=== PATIENT | female | born 1965 | race Caucasian/White ===

== ENCOUNTER 2020-02-26 13:41 | Outpatient (CLI) | payer MEDICARE, SELFPAY ==
--- NOTE | 2020-02-26 13:58 | MM_ITS ---
WS: [id number] DIAGNOSTIC LEFT DIGITAL MAMMOGRAM WITH CAD LEFT breast ultrasound, limited HISTORY: 6 MO F/U ASYMMETRY COMPARISON: 08/31/2019, 08/14/2019 and 07/26/2016 Technique: CC, MLO and ML views. Spot compression LEFT CC and MLO. Breast composition: There are scattered areas of fibroglandular density. Asymmetry upper-outer quadr ant of the LEFT breast at a middle depth persists. No progression since the prior study. There is gary e very minimal architectural distortion and increased density. LEFT breast ultrasound, limited. Ultrasound at 2:00 location demonstrates dense fibroglandular band but no shadowing or mass. Similar to the prior study. MM/[id number] IMPRESSION: BI-RADS: 3-Probably Benign FOLLOW UP: 6 Month Follow-up Patient to return in August for annual mammogram. Diagnostic evaluation of t he LEFT breast asymmetry should be performed at that time.
== END 2020-02-26 13:42 | disposition home or self-care (01) ==
LOC: RADSHAW 13:48
PROVIDERS: PCP Internal Medicine; Visit Provider Internal Medicine
DX: R92.8 Other abnormal and inconclusive findings on diagnostic imaging of breast (principal); N64.89 Other specified disorders of breast
CPT/HCPCS: 76642; 77065

== ENCOUNTER 2020-09-14 10:18 | Outpatient (CLI) | payer MEDICARE, SELFPAY ==
--- NOTE | 2020-09-14 10:25 | MM_ITS ---
WS: [id number] DIAGNOSTIC BILATERAL DIGITAL MAMMOGRAM WITH CAD HISTORY: ABNORMAL MAMMOGRAM LEFT BREAST COMPARISON: 02/26/2020, 08/31/2020, 08/14/2019, 07/26/2016 TECHNIQUE: Bilateral craniocaudad, mediolateral oblique, and mediolateral views are submitted. Spot c ompression LEFT MLO. Computer aided detection utilized. Breast composition: There are scattered areas of fibroglandular density. No significant change in asy mmetry in the upper outer quadrant of the LEFT breast. There may be slight improvement in the overall asymmetry. No additional imaging performed today. MM/[id number] IMPRESSION: BI-RADS: 2-Benign FOLLOW UP: 1 Year Follow-up Return to annual screening mammography.
== END 2020-09-14 10:19 | disposition home or self-care (01) ==
LOC: RADSHAW 10:22
PROVIDERS: PCP Internal Medicine; Visit Provider Internal Medicine
DX: R92.8 Other abnormal and inconclusive findings on diagnostic imaging of breast (principal)
CPT/HCPCS: 77066

== ENCOUNTER 2021-10-04 11:04 | Outpatient (CLI) | payer MEDICARE, SELFPAY ==
--- NOTE | 2021-10-04 11:15 | MM_ITS ---
WS: [id number] BILATERAL SCREENING DIGITAL MAMMOGRAM WITH CAD HISTORY: SCREENING COMPARISON: 09/14/2020, 02/26/2020, 08/14/2019 Bilateral CC and MLO views submitted. Computer aided detection analyzed. Breast composition: There are scattered areas of fibroglandular density. No suspicious masses, microc alcifications or architectural distortion. MM/[id number] IMPRESSION: BI-RADS: 2-Benign FOLLOW UP: 1 Year Follow-up
== END 2021-10-04 11:05 | disposition home or self-care (01) ==
LOC: RADSHAW 11:12
PROVIDERS: PCP Internal Medicine; Visit Provider Internal Medicine
DX: Z12.31 Encounter for screening mammogram for malignant neoplasm of breast (principal)
CPT/HCPCS: 77067

== ENCOUNTER → 2022-04-26 09:23 | Outpatient (BNVA) | payer MEDICARE, SELFPAY | PROVIDERS: PCP Family Medicine; Referring Provider Family Medicine; Visit Provider Internal Medicine | DX: M19.90 Unspecified osteoarthritis, unspecified site (principal); R76.8 Other specified abnormal immunological findings in serum; Z11.59 Encounter for screening for other viral diseases; Z11.1 Encounter for screening for respiratory tuberculosis | CPT/HCPCS: 36415; 72040; 72100; 72202; 73120; 80053; 85025; 86160; 86162; 86200; 86235; 86255; 86376; 86480; 86704; 86803; 87340; 99204 ==

== ENCOUNTER → 2022-05-24 10:45 | Outpatient (BNVA) | payer MEDICARE, SELFPAY | PROVIDERS: PCP Family Medicine; Visit Provider Internal Medicine | DX: R76.8 Other specified abnormal immunological findings in serum (principal); M54.2 Cervicalgia; N28.9 Disorder of kidney and ureter, unspecified | CPT/HCPCS: 99214 ==

== ENCOUNTER 2022-08-08 06:18 | Outpatient (CLI) | payer MEDICARE, SELFPAY ==
--- NOTE | 2022-08-08 06:38 | CT_ITS ---
WS: [id number] CT CERVICAL SPINE TECHNIQUE: Noncontrast CT of the cervical spine with coronal and sagittal reformatted images. CLINICAL INFORMATION: CERVICALGIA COMPARISON: None. DLP: 311.[address] scans at [facility] use at least one of these dose optimization techniques: automated e xposure control; mA and/or kV adjustment per patient size (includes targeted exams where dose is matc hed to clinical indication); or iterative reconstruction. FINDINGS: Straightening of the normal cervical lordosis. Mild spondylitic changes. Disc space narrowing worse a t C5-C6 and C6-C7. C2-C3: Normal. C3-C4: Disc osteophyte complex with endplate ridging. Small central protrusion with contact of the ce rvical cord. Mild central canal stenosis. Moderate facet arthropathy. Mild LEFT and no significant RI GHT foraminal narrowing. C4-C5: Disc osteophytic ridging. Spinal canal and foramen are patent. Mild facet arthropathy. C5-C6: Disc osteophyte complex with endplate ridging. Moderate central canal stenosis. Moderate facet arthropathy. Mild to moderate bilateral bony foraminal narrowing. C6-C7: Disc osteophyte complex with endplate ridging. Mild central canal stenosis. Mild LEFT greater than RIGHT bony foraminal narrowing. C7-T1: No significant disc bulging. Spinal canal and foramen are patent. Mild mucosal thickening sphenoid sinus. Mastoid air cells well aerated. CT/CT cervical spin wo con* [id number] IMPRESSION: 1. Straightening of the normal cervical lordosis. Mild spondylitic changes. 2. Mild central canal stenosis C3-C4 small central protrusion and slight conta ct of the cervical cord. 3. Moderate central canal stenosis C5-C6 due to disc osteophyte complex.. 4. Mild to moderate bony foraminal narrowing worse at bilateral C5-C6 and bila teral C6-C7.
== END 2022-08-08 06:19 | disposition home or self-care (01) ==
LOC: RAD 06:20
PROVIDERS: PCP Family Medicine; Visit Provider Nurse Practitioner
DX: M50.21 Other cervical disc displacement, high cervical region (principal); M25.78 Osteophyte, vertebrae; M47.892 Other spondylosis, cervical region; M48.02 Spinal stenosis, cervical region
CPT/HCPCS: 72125

== ENCOUNTER → 2022-08-23 09:20 | Outpatient (BNVA) | payer MEDICARE, SELFPAY | PROVIDERS: PCP Family Medicine; Visit Provider Internal Medicine | DX: R76.8 Other specified abnormal immunological findings in serum (principal); M54.2 Cervicalgia; N28.9 Disorder of kidney and ureter, unspecified | CPT/HCPCS: 99214 ==

== ENCOUNTER → 2022-09-13 13:34 | Outpatient (BNVA) | payer MEDICARE, SELFPAY | PROVIDERS: PCP Family Medicine; Visit Provider Podiatrist Foot & Ankle Surgery | DX: M76.71 Peroneal tendinitis, right leg (principal); E11.9 Type 2 diabetes mellitus without complications; Z79.84 Long term (current) use of oral hypoglycemic drugs | CPT/HCPCS: 99213 ==

== ENCOUNTER 2022-09-17 08:23 | Outpatient (RCR) | payer MEDICARE, SELFPAY | END 2022-10-13 23:59 | disposition home or self-care (01) | LOC: SPT 08:23 | PROVIDERS: PCP Family Medicine; Visit Provider Anesthesiology Pain Medicine | DX: M54.2 Cervicalgia (principal) | CPT/HCPCS: 97110; 97162; G0283 ==

== ENCOUNTER 2022-10-14 06:00 | Outpatient (RCR) | payer MEDICARE, SELFPAY | END 2022-10-24 23:59 | disposition home or self-care (01) | LOC: SPT 06:00 | PROVIDERS: PCP Family Medicine; Visit Provider Anesthesiology Pain Medicine | DX: M54.2 Cervicalgia (principal) | CPT/HCPCS: 97110; G0283 ==

== ENCOUNTER → 2022-11-20 14:47 | Outpatient (BNVA) | payer MEDICARE, SELFPAY | PROVIDERS: PCP Family Medicine; Visit Provider Internal Medicine | DX: R76.8 Other specified abnormal immunological findings in serum (principal); M54.2 Cervicalgia; N28.9 Disorder of kidney and ureter, unspecified; M25.561 Pain in right knee; M25.562 Pain in left knee; Z79.899 Other long term (current) drug therapy | CPT/HCPCS: 20610; 99214; J1030 ==

== ENCOUNTER → 2022-11-22 14:52 | Outpatient (BNVA) | payer MEDICARE, SELFPAY | PROVIDERS: PCP Family Medicine; Visit Provider Podiatrist Foot & Ankle Surgery | DX: I73.9 Peripheral vascular disease, unspecified (principal); L60.3 Nail dystrophy; R76.8 Other specified abnormal immunological findings in serum; N28.9 Disorder of kidney and ureter, unspecified; Z79.84 Long term (current) use of oral hypoglycemic drugs | CPT/HCPCS: 11721 ==

== ENCOUNTER → 2023-02-12 13:46 | Outpatient (BNVA) | payer MEDICARE, SELFPAY | PROVIDERS: PCP Family Medicine; Visit Provider Internal Medicine | DX: R76.8 Other specified abnormal immunological findings in serum (principal); N28.9 Disorder of kidney and ureter, unspecified; M54.2 Cervicalgia; M25.569 Pain in unspecified knee | CPT/HCPCS: 99213 ==

== ENCOUNTER → 2023-02-14 12:49 | Outpatient (BNVA) | payer MEDICARE, SELFPAY | PROVIDERS: PCP Family Medicine; Visit Provider Podiatrist Foot & Ankle Surgery | DX: I73.9 Peripheral vascular disease, unspecified (principal); L60.3 Nail dystrophy; L85.1 Acquired keratosis [keratoderma] palmaris et plantaris; N28.9 Disorder of kidney and ureter, unspecified; R76.8 Other specified abnormal immunological findings in serum | CPT/HCPCS: 11721; 17110 ==

== ENCOUNTER → 2023-04-18 12:49 | Outpatient (BNVA) | payer MEDICARE, SELFPAY | PROVIDERS: PCP Family Medicine; Visit Provider Podiatrist Foot & Ankle Surgery | DX: I73.9 Peripheral vascular disease, unspecified (principal); L60.8 Other nail disorders; L85.1 Acquired keratosis [keratoderma] palmaris et plantaris; L60.3 Nail dystrophy; N28.9 Disorder of kidney and ureter, unspecified; R76.8 Other specified abnormal immunological findings in serum | CPT/HCPCS: 11721; 17110 ==

== ENCOUNTER → 2023-04-22 13:43 | Outpatient (BNVA) | payer MEDICARE, SELFPAY | PROVIDERS: PCP Family Medicine; Referring Provider Internal Medicine; Visit Provider Student in an Organized Health Care Education/Training Program | DX: M25.561 Pain in right knee (principal); M25.562 Pain in left knee; M17.11 Unilateral primary osteoarthritis, right knee | CPT/HCPCS: 73560; 73565; 97760; 99204; L1851 ==

== ENCOUNTER 2023-04-22 16:12 | Outpatient (CLI) | payer MEDICARE, SELFPAY | END 2023-04-22 16:13 | disposition home or self-care (01) | LOC: SPT 16:12 | PROVIDERS: PCP Family Medicine; Visit Provider Student in an Organized Health Care Education/Training Program | DX: Z46.89 Encounter for fitting and adjustment of other specified devices (principal); M17.11 Unilateral primary osteoarthritis, right knee; M25.561 Pain in right knee; M25.562 Pain in left knee | CPT/HCPCS: 97760; 99204; L1851 ==

== ENCOUNTER → 2023-04-24 08:52 | Outpatient (BNVA) | payer MEDICARE, SELFPAY | PROVIDERS: PCP Family Medicine; Visit Provider Internal Medicine | DX: R76.8 Other specified abnormal immunological findings in serum (principal); N28.9 Disorder of kidney and ureter, unspecified; M54.2 Cervicalgia; M25.569 Pain in unspecified knee | CPT/HCPCS: 99214 ==

== ENCOUNTER 2023-05-06 07:44 | Outpatient (CLI) | payer MEDICARE, SELFPAY ==
--- NOTE | 2023-05-06 08:00 | CT_ITS ---
WS: [id number] CT RIGHT KNEE, NONCONTRAST TECHNIQUE: Noncontrast CT of the RIGHT knee to include the RIGHT hip and ankle. [facility] CLINICAL INFORMATION: PRIOR TO RIGHT TOTAL KNEE ARTHROPLASTY COMPARISON: None. DLP: 1010.[address] scans at [facility] use at least one of these dose optimization techniques: automated e xposure control; mA and/or kV adjustment per patient size (includes targeted exams where dose is matc hed to clinical indication); or iterative reconstruction. FINDINGS: Chronic fracture mid and distal LEFT femoral shaft with prominent callus formation. Similar-appearing chronic healed fracture LEFT femoral shaft. Advanced degenerative arthritis RIGHT knee worse involving the lateral joint compartment with bone-on -bone articulation. Hypertrophic patella. Small suprapatellar effusion. Moderate degenerative narrowi ng both hips RIGHT greater than LEFT. CT/CT knee RT [facility] IMPRESSION: Images obtained for preoperative purposes.
== END 2023-05-06 07:45 | disposition home or self-care (01) ==
PROVIDERS: PCP Family Medicine; Visit Provider Student in an Organized Health Care Education/Training Program
DX: Z01.818 Encounter for other preprocedural examination (principal); M17.11 Unilateral primary osteoarthritis, right knee
CPT/HCPCS: 73700

== ENCOUNTER 2023-05-22 11:08 | Outpatient (CLI) | payer MEDICARE, SELFPAY ==
--- NOTE | 2023-05-22 11:20 | MM_ITS ---
WS: [id number] BILATERAL SCREENING DIGITAL TOMOSYNTHESIS MAMMOGRAM WITH CAD HISTORY: SCREENING COMPARISON: 10/04/2021, 09/14/2020 and 02/26/2020 Bilateral CC and MLO views with tomosynthesis and synthetic mammography submitted. Computer aided det ection analyzed. Breast composition: There are scattered areas of fibroglandular density. No suspicious masses, microc alcifications or architectural distortion. Stable asymmetry in the upper outer quadrant of the left b reast. Benign calcification left breast. IMPRESSION: MM/[id number] BI-RADS: 2-Benign FOLLOW UP: 1 Year Follow-up
== END 2023-05-22 11:09 | disposition home or self-care (01) ==
LOC: RAD 11:14 → MOBLMAM 11:19
PROVIDERS: PCP Family Medicine; Visit Provider Family Medicine
DX: Z12.31 Encounter for screening mammogram for malignant neoplasm of breast (principal)
CPT/HCPCS: 77063; 77067

== ENCOUNTER → 2023-05-23 09:35 | Outpatient (BNVA) | payer MEDICARE, SELFPAY | PROVIDERS: PCP Family Medicine; Visit Provider Student in an Organized Health Care Education/Training Program | DX: Z01.818 Encounter for other preprocedural examination (principal); M17.11 Unilateral primary osteoarthritis, right knee; E11.9 Type 2 diabetes mellitus without complications; Z79.84 Long term (current) use of oral hypoglycemic drugs | CPT/HCPCS: 99214 ==

== ENCOUNTER 2023-05-30 10:22 | Outpatient (CLI) | payer MEDICARE, SELFPAY ==
[2023-05-30 11:01] LABS: Basophils # 0.1 10^3/uL (0.0-0.1); Basophils % 1.1 %; Eosinophils # 0.5 10^3/uL (0.0-0.8); Hematocrit 41.2 % (37.0-47.0); Hemoglobin 13.2 g/dL (11.5-15.3); Lymphocytes # 0.9 10^3/uL (0.8-4.8); Lymphocytes % 16.4 %; Mean Corpuscular Hemoglobin 29.3 pg (28.0-34.0); Mean Corpuscular Volume 91.6 fl (81-99); Mean Platelet Volume 9.2 fL (7.4-10.4); Monocytes # 0.5 10^3/uL (0.2-0.9); Neutrophils # 3.35 10^3/uL (1.8-7.7); Neutrophils % 63.1 %; Nucleated Red Blood Cells % 0 %; Platelet Count 262 10^3/cmm (130-400); Red Cell Distribution Width 12.5 % (12.1-15.1); White Blood Count 5.3 10^3/uL (4.0-10.0)
[2023-05-30 11:20] LABS: Estmated Average Glucose 117; Hemoglobin A1C 5.7 % (4.0-6.0)
[2023-05-30 11:20] LABS: Bilirubin Urine Neg (Negative); Blood Urine Neg (Negative); Glucose Urine UA Norm (Normal); Ketones Urine Negative (Negative); Nitrate Urine Negative (Negative); Protein Urine Neg (Negative); Specific Gravity, Urine 1.015 (1.005-1.030); Urine Appearance SL Hazy (CLEAR); Urine Color Yellow (Yellow); pH Urine 5 (5-7)
[2023-05-30 11:21] LABS: Leukocyte Esterase Urine 2+ (Negative); RBC Urine 0-4 /hpf (0-2); Urobilinogen Urine Norm (Negative)
[2023-05-30 11:22] LABS: Add Urine Culture? No; Amorphous Sediment Urine 2+ /hpf; Bacteria Urine TRACE /hpf; Hyaline Casts Urine 0-4 /lpf; Mucus Urine 1+ /hpf; Squamous Epithelial Cell Urine 0-4 /hpf (0-5)
[2023-05-30 11:27] LABS: Alanine Aminotransferase 33 U/L (0-33); Albumin Level 4.4 g/dL (3.5-5.2); Alkaline Phosphatase 80 U/L (35-105); Aspartate Amino Transferase 35 U/L (0-32); Blood Urea Nitrogen 23 mg/dL (8-23); Calcium 9.3 mg/dL (8.5-10.5); Carbon Dioxide 26 mmol/L (22-29); Chloride 108 mmol/L (98-107); Globulin 2.7 g/dL (1.3-4.6); Glucose 87 mg/dL (65-115); Osmolality Calculated 301 mOsm/kg (285-295); Sodium 144 mmol/L (136-145); Total Bilirubin 0.5 mg/dL (0.15-1.2); Total Protein 7.1 g/dL (6.6-8.7)
== END 2023-05-30 10:23 | disposition home or self-care (01) ==
PROVIDERS: Student in an Organized Health Care Education/Training Program; PCP Family Medicine; Visit Provider Internal Medicine
DX: Z01.818 Encounter for other preprocedural examination (principal); E11.9 Type 2 diabetes mellitus without complications; Z79.899 Other long term (current) drug therapy
CPT/HCPCS: 36415; 80053; 81001; 83036; 85025

== ENCOUNTER 2023-05-31 14:27 | Outpatient (CLI) | payer MEDICARE, SELFPAY ==
--- NOTE | 2023-05-31 15:00 | CT_ITS ---
WS: [id number] CT RIGHT KNEE, NONCONTRAST TECHNIQUE: Noncontrast CT of the RIGHT knee to include the RIGHT hip and ankle. CLINICAL INFORMATION: RIGHT TOTAL KNEE ARTHROPLASTY CINDY COMPARISON: None. DLP: 895.[address] scans at [facility] use at least one of these dose optimization techniques: automated e xposure control; mA and/or kV adjustment per patient size (includes targeted exams where dose is matc hed to clinical indication); or iterative reconstruction. FINDINGS: Chronic healed fracture deformities involving both mid femoral shafts seen on the semi driver imaging with callus formation. Moderate degenerative arthritis bilateral hips. Normal visualized pubic rami. Anu l sigmoid colon partially visualized. Advanced tricompartmental arthritis right knee. Hypertrophic patella. Hypertrophic change along the j oint line. Small suprapatellar effusion. IMPRESSION: Images obtained for preoperative purposes.
== END 2023-05-31 14:28 | disposition home or self-care (01) ==
PROVIDERS: PCP Family Medicine; Visit Provider Student in an Organized Health Care Education/Training Program
DX: M17.11 Unilateral primary osteoarthritis, right knee (principal)
CPT/HCPCS: 73700

== ENCOUNTER → 2023-06-04 10:11 | Outpatient (BNVA) | payer MEDICARE, SELFPAY | PROVIDERS: PCP Family Medicine; Visit Provider Clinical Nurse Specialist Adult Health | DX: Z01.818 Encounter for other preprocedural examination (principal); N28.9 Disorder of kidney and ureter, unspecified | CPT/HCPCS: 81003; 82043 ==

== ENCOUNTER → 2023-06-06 07:51 | Outpatient (BNVA) | payer MEDICARE, SELFPAY | PROVIDERS: PCP Family Medicine; Visit Provider Clinical Nurse Specialist Adult Health | DX: N28.9 Disorder of kidney and ureter, unspecified (principal) | CPT/HCPCS: 87086 ==

== ENCOUNTER 2023-06-10 14:40 | Observation (INO) | payer MEDICARE, SELFPAY ==
[2023-06-07 12:10] VITALS: BMI 42.0
[2023-06-10] VITALS (12 sets, daily range): BP systolic 91–167; BP diastolic 47–85; PULSE 63–87; RESP 14–18; TEMP 36.3–36.4; O2SAT 94–99; BMI 42.0
[2023-06-10] MEDS: acetaminophen 1,000 MG/100 ML PIGGYBACK 400 MG IV ×2 (10:12→18:13)
[2023-06-10] MEDS: ketorolac 30 mg/mL INJ IVP (10:13)
[2023-06-10] MEDS: lactated ringers 500 ML 250 ML IV (10:14)
[2023-06-10 10:18] LABS: Basophils # 0.1 10^3/uL (0.0-0.1); Basophils % 0.9 %; Eosinophils # 0.5 10^3/uL (0.0-0.8); Hematocrit 39.7 % (36-47); Lymphocytes # 1.4 10^3/uL (0.8-4.8); Lymphocytes % 26.6 %; Mean Corpuscular HGB Conc 32.7 g/dL (30-55); Mean Corpuscular Hemoglobin 29.7 pg (27-33); Mean Corpuscular Volume 90.6 fl (85-98); Mean Platelet Volume 9.6 fL (7.4-10.4); Monocytes # 0.4 10^3/uL (0.2-0.9); Monocytes % 7.9 %; Neutrophils # 2.89 10^3/uL (1.8-7.7); Neutrophils % 54.4 %; Nucleated Red Blood Cells % 0 %; Platelet Count 244 10^3/cmm (157-399); Red Blood Count 4.38 10^6/uL (3.85-5.65); Red Cell Distribution Width 12.3 % (12.1-15.1); White Blood Count 5.31 10^3/uL (3.29-11.43)
[2023-06-10 10:32] LABS: Blood Urea Nitrogen 27 mg/dL (8-23); Carbon Dioxide 26 mmol/L (22-29); Chloride 108 mmol/L (98-107); Glomerular Filtration Rate 32.9 mL/min (90-130); Glucose 92 mg/dL (65-115); Osmolality Calculated 301 mOsm/kg (285-295); Sodium 143 mmol/L (136-145)
[2023-06-10 10:33] LABS: Creatinine Clr Calc Pharmacy 42.3763
[2023-06-10 10:34] LABS: Anion Gap 14.2 (5-19); Potassium 5.2 mmol/L (3.5-5.1)
--- NOTE | 2023-06-10 10:42 | P.ANESASSM_ITS ---
Pre-Anesthetic Assessment Height/Weight: Height 1.57 m Weight 104.326 kg Temp Pulse Resp BP Pulse Ox O2 Del Method 97.3 F L 82 18 167/85 97 Room Air 06/10/23 09:45 06/10/23 09:45 06/10/23 09:45 06/10/23 09:45 06/10/23 09:45 06/10/23 09:50 Preop Diagnosis: Right knee degenerative joint disease Operation Date: 06/10/23 11:10 Proposed Procedures p RIGHT TOTAL KNEE ARTHROPLASTY w/ Sagar [id number],M17.11(Right) - Andrea Vizcarra DO Familial anesthetic complications: None Was Beta Rosie taken within 24 hours: N/A Was Clonidine taken within 24 hours: N/A Last intake: Intake Last Liquid Date 06/09/23 Last Liquid Time 23:00 Last Solid Date 06/09/23 Last Solid Time 20:00 Social No alcohol and No tobacco Exam alert, oriented x 3, clear to auscultation bilaterally and regular rate & rhythm Airway Mallampati: Class II Dentition: full Pulmonary Asthma CV/HEM Hypertension Chronic Renal Insufficiency Metabolic Diabetes Mellitus, Hyperlipidemia and Morbid Obesity [facility] [place] Rheumatoid Arthritis Anesthetic Plan ASA status: 3 Anesthesia: Regional (specify below) (spinal + adductor) Risk of > 500 ml blood loss (7ml/kg in children): No Medications/Allergies Home Medications Medication Instructions Recorded Confirmed Last Taken Type albuterol sulfate 90 mcg/actuation 2 puff inhalation Q6H PRN Allergy 08/29/21 06/07/23 06/09/23 History aerosol inhaler (ProAir HFA) Symptoms atorvastatin 20 mg tablet 20 mg PO DAILY 08/29/21 06/07/23 06/09/23 History budesonide-formoterol HFA 160 2 puff inhalation BID 08/29/21 06/07/23 06/09/23 History mcg-4.5 mcg/actuation aerosol inhaler (Symbicort) glucosamine sulf dipot 1 cap PO DAILY 08/29/21 06/07/23 06/09/23 History chlr,msm,chond 550 mg-C 30 mg-tye 1 mg capsule (Glucosamine Chondroitin) montelukast 10 mg tablet 10 mg PO DAILY 08/29/21 06/07/23 06/09/23 History pantoprazole 40 mg tablet,delayed 40 mg PO DAILY 08/29/21 06/07/23 06/09/23 History release diclofenac sodium 1 % topical gel 4 g topical QID #100 grams 08/23/22 06/07/23 06/09/23 Rx (Voltaren Arthritis Pain) hydroxychloroquine 200 mg tablet 200 mg PO BID 30 days #60 tabs 03/18/23 06/07/23 06/09/23 Rx KNEE BRACE #1 ea 04/22/23 06/04/23 Unknown Rx lisinopril 10 mg tablet 5 mg PO DAILY 06/04/23 06/07/23 06/09/23 History metformin 500 mg tablet 500 mg PO DAILY 06/04/23 06/07/23 06/09/23 History prednisone 5 mg tablet 5 mg PO DAILY #30 tabs 06/06/23 06/10/23 06/09/23 Rx ondansetron 4 mg disintegrating 4 mg PO Q8H PRN nausea and 06/10/23 Unknown Rx tablet vomiting 3 days #9 tabs Allergies Allergy/AdvReac Type Severity Reaction Status Date / Time No Known Allergies Allergy Verified 06/04/23 09:30 PFSH Anesthesia Medical History Asthma Bilateral knee pain Chronic kidney disease Chronic migraine Diabetes Hypertension Kidney disease hx of kidney scarring Surgical History History of knee surgery 2012 Family History Other Arthritis Chronic kidney disease (CKD) Diabetes Denies family history of CAD (coronary artery disease) Clotting disorder Dementia Anesthesia complication Bleeding disorder Lung disease Cancer Stroke Social History Smoking and tobacco status: never smoked Alcohol intake: never Substance/Drug Use: never Household members: spouse Marital status: Data Anesthesia 06/10/23 10:00 06/10/23 10:00 Short CBC 06/10/23 Range/Units 10:00 WBC 5.31 (3.29-11.43) 10^3/uL Hgb 13.00 (11.27-16.99) g/dL Hct 39.7 (36-47) % MCV 90.6 (85-98) fl Plt Count 244 (157-399) 10^3/cmm Neut % (Auto) 54.4 % Neut # (Auto) 2.89 (1.8-7.7) 10^3/uL BMP 06/10/23 10:00 Sodium 143 Potassium 5.2 H Chloride 108 H Carbon Dioxide 26 BUN 27 H Creatinine 1.6 H Glucose 92 Calcium 9.0 Cardiac Studies: No Data to Display
--- NOTE | 2023-06-10 10:44 | ANES.PROC ---
Anesthesia Procedures Procedure/Date: 06/10/23 Nerve Block ^: Nerve Block 1: Main Anesthesia: spinal anesthesia block Time Out Performed: Yes Consent: requested by attending/covering physician, from patient, from other, risks and benefits reviewed and patient agrees to proceed Nerve block location: adductor canal (R) Anesthesia monitors applied: pulse oximetry, EKG, BP cuff and oxygen Nerve block position: supine Anesthetic Used: ropivicaine 0.5% (30 ml) and with decadron (4 mg) Ultrasound used to: recognize landmarks and visualize and ID femerol nerve Nerve Stimulator Used?: No Interscalene/Femoral BLK: 4 stimuplex 21 g needle used for position and inplane approach, visualize local anesthetic spread and no vascular puncture identified Injection: neg aspiration of heme and paresthesia +/- Patient Tolerated Procedure: well Complications: none
--- NOTE | 2023-06-10 11:05 | P.HPUD_ITS ---
Surgery/Procedure H&P Update DATE OF PROCEDURE: June 10, 2023 DATE H&P PERFORMED: 05/23/23 CHANGES TO PREVIOUS DOCUMENTATION: None. No change in HPI from previous office visit on 05/23/2023. Patient is cleared preoperative clinic and cleared for surgery. She understands the risk benefits complication alternatives with surgery and through shared decision- making elects to proceed with surgical intervention of a right total knee arthroplasty Sagar robotic assisted. Patient understands agrees with current plan. Questions answered. PREOP DIAGNOSIS: Right knee degenerative joint disease PRIMARY INDICATION FOR PROCEDURE: Right knee degenerative joint disease PLANNED PROCEDURE: Operation Date: 06/10/23 11:10 Proposed Procedures p RIGHT TOTAL KNEE ARTHROPLASTY w/ Sagar [id number],M17.11(Right) - Andrea Vizcarra DO
[2023-06-10] MEDS: ceFAZolin 2,000 MG in sodium chloride 0.9% (plus) 50 ML 100 MG IV ×2 (11:40→20:23)
--- NOTE | 2023-06-10 11:42 | PM.MISC ---
Miscellaneous Note Purpose of Documentation: SOB Note: Called to OR before spinal placed d/t patient O2 sat of 88% of room air and mild SOB. Patient stated she hadn't taken her inhaler this morning and she was given this inhlaer before my arrival to OR. Upon entrance to OR O2 via simple face mask was applied, O2 sat increased to 99% and SOB improved. I was told by OR staff she was short of breath right before coming to OR and upon moving onto OR bed and that she coughed up mucus. Patient states she had no SOB, cough, runny nose, or sore throat previously and that she felt her nose get a bit runny and itchy with a bit of associated cough only just as she was about to exit pre-op. Her SOB improved after several minutes of watchful waiting, her lungs were CT Bilaterally, and patient denies any other s/s of respiratory infection including Nausea or fever. She is afebrile, she has no white count, and her O2 sat was 97% on RA in pre-op. After discussion with surgeon, we decided to proceed with patient in agreement given the spontaneous and transient nature of the complaint.
[2023-06-10] MEDS: ROPivacaine 0.2% Premix 100 mL 200 MG INTRA-ARTI (12:22)
[2023-06-10] MEDS: tranexamic acid 1,000 mg/10mL SDV 1000 MG XX (12:22)
[2023-06-10] MEDS: EPINEPHrine 1 mg/mL INJ XX (12:22)
[2023-06-10] MEDS: ketorolac 30 mg/mL INJ XX (12:22)
--- NOTE | 2023-06-10 12:37 | SUR.OPER ---
Family Notified Of Patient's Status Via Phone.
--- NOTE | 2023-06-10 13:28 | SUR.OPER ---
Family Notified Of Patient's Status Via Phone.
[2023-06-10] MEDS: vancomycin 1,000 MG SDV 1000 MG XX (14:00)
--- NOTE | 2023-06-10 14:21 | P.OP_ITS ---
Operative Report Date of procedure: June 10, 2023 Pre-op diagnosis: Preop Diagnosis Right knee degenerative joint disease Procedure: Post-op diagnosis: Same Procedure done: Right total knee arthroplasty, cemented?robotic assisted Sagar Implants: [place] triathlon size 3 femur CR cemented right Emmanuel triathlon size? 4 tibia universal baseplate cemented Emmanuel triathlon symmetric patella size 33mm [place] triathlon polyethylene 12mm Surgeon: Andrea Vizcarra DO Campus Ambassador : Taqueria Vizcarra PA-C PA was necessary for assistance with this case to assist with appropriate leg positioning, implantation, protection of neurovascular structures and assistance with wound closure. Estimated blood loss: 75mL Tourniquet 101minutes IV fluids: 1500 mL Urine output: 200mL Complications: None Condition: stable Disposition: floor Brief History: Patient is a 6-0year-old female with with chronic right knee degenerative joint disease.? Patient has been worked up in the outpatient setting in the orthopedic office at this point time through shared decision making given his [id number]-nkmg arthritis as well as failed conservative treatment, and pt would like to proceed with a right total knee arthroplasty.? Through shared decision making elected to proceed with surgical intervention for right total knee arthroplasty.? We talked about continued conservative treatment and surgical intervention as far as the risk benefits complications alternatives surgical and nonsurgical treatment options.? At this point time understanding patient risks with surgery he agrees to proceed with surgical intervention.? Once again? risk with surgery include but are not limited to make it better make it worse blood clot, heart attack, stroke, on the table, infection, injury to nerves or vessels, persistent pain, arthrofibrosis, implant failure.? Understanding these risks patient agrees to proceed with surgical intervention consent was obtained in the office.? All questions answered. Procedure: Patient was seen and evaluated in the preoperative holding area.? Consent was reviewed and signed with patient with plan for right total knee arthroplasty.? All questions answered.? Correct extremity marked.? Patient seen and evaluated by the anesthesia department and once cleared for surgery was taken back to the operative suite.? Patient was placed into a supine position on the OR table.? All bony prominences were well-padded.? Patient was appropriately secured to the bed.? Patient underwent anesthesia per the anesthesia department.? Patient received spinal anesthesia and? Mendiola catheter was placed.? A nonsterile tourniquet was applied to the right thigh.? At this point in time a final timeout performed.? Patient received appropriate preoperative antibiotics and TXA. Next the right lower extremity was then prepped and draped in standard orthopedic fashion. Esmarch tourniquet was used exsanguinate the right lower extremity.? Tourniquet was insufflated to 300 mmHg. Examination under anesthesia of the knee demonstrates a valgus deformity with some laxity MCL but a noticeable firm endpoint. TS implants were readily available if the MCL was found to be incompetent during balancing. A standard anterior incision was made over midline of the knee.? Sharp scalpel excision through skin and subcutaneous tissue full-thickness skin flaps were made.? Fascia was elevated off of the extensor retinaculum was stable with medial parapatellar arthrotomy was then made.? The performed standard sequential releases..? Immediately on entry into the joint patient was found to have severe eburnated bone and tricompartmental arthritic changes noted.? With significant osteophyte formation.? Next the the patella was then stuffed and the knee was then flexed.?? Doe was placed superiorly around the anterior aspect of the femur this was freed of synovium and I subsequently then placed by 2 femur pins to establish my femur arrays for the Sagar robot.? These were then placed bicortically and? femur array was then appropriately secured with appropriate visualization.? Next attention was turned towards the tibial rays.? These were then drilled sequentially bicortically in parallel fashion and intraincisional.? I then placed my guide as well as my tibial array on in place.? This was appropriately secured and had excellent visualization with the Sagar robot.? Next the tibial checkpoint as well as femur checkpoint were then placed.? At this point time I then subsequently established my head center as well as my medial lateral malleoli as well as my checkpoints.? Next utilizing standard Sagar technology I then mapped out the appropriate points and confirmation points around the femur as well as the tibia in standard fashion.? Once this was then done I then removed all osteophytes in preparation for dynamic testing.? All osteophytes were removed as well as I removed the ACL and the PCL was excised due to its significant tearing and degeneration noted.? At this point time the knee was brought into full extension and we performed our standard evaluation of our gap balancing stressing his ligaments and extension as well as flexion appropriate adjustments were made to have appropriate gap balancing in both flexion and extension.? Patient was found to have a competent MCL amendable for gap balancing with [employer] robot[employer]. We will plan for CR implants. This plan for final counts.? We get a preoperative plan evaluating our implants which was a size 3 femur and a size 4 tibia.? Next we brought in the Sagar robot and sequentially made our femur cuts.? All excess bony cuts were then removed.? Finally we made our tibial cut.? Once this was done a standard PCL retractor was then placed into this position I excised the medial and lateral meniscus.? The tibial cut was then subsequently removed all excess bony debris was removed.? I then utilized a lamina airfield services officer and remove the posterior osteophytes.? At this point time sized the tibia and confirmed this was a size 4.? I utilized our blunt probe to establish rotation of tibial implant.? Once this was done I then placed my tibia size 4 trial in ap propriate position and then subsequently placed tibial pins to hold this into place placed a size 12 mm poly as well as a size 3 femur which was appropriately impacted in place knee was then subsequently brought into extension. Trials were then assessed, this was stable with varus valgus stress in extension as well as flexion.? I had excellent balance gaps in flexion and extension with varus and v algus stresses.? At this point I was satisfied with these implants these were then verified and opened on the back table size 4 tibia, size3 femur,? size 12 mm polythickness.? We did confirm appropriate gap balancing and stresses as well as alignment utilizing? Sagar and were satisfied with this plan.? ?At this point time with my trials in place I then towel clip the patella everted this made appropriate measurements subsequently utilizing freehand technique performed by patellar resurfacing this was confirmed to be appropriate resection and subsequently sized to be a 33 mm symmetric.? My drill peg guides were then clamped and appropriate position and appropriate position in the patella for appropriate tracking and parallel with the joint.? Pegs were drilled trial implant was placed and the knee was then subsequently ranged and found to have excellent patellar tracking.? Femur pegs were then drilled.? Satisfied with our tibial placement rotation I then utilized the keel punch and prepped the tibia.? At this point time all of our trial implants were removed.? All checkpoints as well as guidepins and arrays were removed and appropriate counts made.? The wound bed? was thoroughly irrigated and dried and prepped for cementation.? Cement was mixed on the back table.? Once cement was ready this was then covered onto the tibia and the tibial baseplate was then impacted and all excess cement was removed.? Next the polyethylene was then impacted into place on the tibial baseplate.? Next cement was placed onto the femur as well as under the femur implants and impacted in to place and all excess cement was extruded and removed.? Knee was taken into full extension? to clear all excess cement was removed.? Warm saline was placed over the joint.? I then towel clip patella and dried for cementation. cemented the patella into place.? This was all clamped and the cement was allowed to cure.? Thorough irrigation performed with pulse lavage.? I then placed my periarticular injection while the cement was curing.? Once cured the knee was taken through range of motion and had excellent stability and gaps were balanced in flexion and extension.? Tourniquet was then deflated. hemostasis satisfactory with electrocautery.? Next I then subsequently closed the capsule with Ethibond suture as well as a running strata fix suture.? Knee was then taken through range of motion 30 times.? Next the skin was then closed in layered fashion of running stratifix sutures of deep and subcutenous tissue and skin.? ?closed in flexion and david for skin with sherron dressing applied, with ABDs soft roll and Zelalem wrap.? Patient was then awakened from anesthesia and taken to PACU in stable condition. Disposition: Patient taken to PACU in stable condition will be admitted to the floor for pain control PT/OT weight-bear as tolerated right lower extremity dressing changes as needed, DVT prophylaxis. Pain control. Patient will receive appropriate postoperative antibiotics. patient will be seen today by the internal medicine team for medical management.? Patient will follow up with the office in 2 weeks.? Patient understands agrees with current plan.? All questions answered.
--- NOTE | 2023-06-10 14:22 | XR_ITS ---
WS: [id number] Exam: XR knee RT 3V* [id number] Date/Time of Exam: 06/10/2023 2:45 PM Reason For Exam: Status post right TKA Comparison 04/22/2023. Total knee prosthesis is in place in excellent position. Postoperative changes in the adjacent soft t issues. Anterior surgical skin clips. Healed fracture of the lower femur. IMPRESSION: 1. Total knee replacement in excellent position.
--- NOTE | 2023-06-10 14:35 | PM.OP2 ---
Brief Operative Note Date of procedure: 06/10/23 Pre-op diagnosis: Right knee degenerative joint disease Post-op diagnosis: same Procedure Done: Right knee total arthroplasty with Sagar Robot Surgeon: Andrea Vizcarra Estimated blood loss (mL): 75 Complications: None Post-op Plan: Keep incisions clean dry and intact, leave Silverlon bandage dressings on in place for 7 days after that may rinse incisions with warm soapy water pat dry and redress with a dry dressing. Patient may weight-bear as tolerate to the operative extremity Physical therapy per total knee replacement protocol Utilize crutches as needed Encourage knee range of motion Ice and elevate as needed for pain and swelling Take pain medication as prescribed Take antinausea medication as needed Take the prescribed Eliquis twice daily for the next 14 days for blood clot prevention May supplement for pain with ibuprofen [id number] as needed No baths or soaks Follow-up in the orthopedic office in 2 weeks Contact the office for any questions or concerns Condition: stable Disposition: PACU Coding Level of Care Code Acute Code for Janelle Hollingsworth
--- NOTE | 2023-06-10 14:40 | PM.PACU ---
PACU note Narrative: Patient is a 58-year-old female who just underwent a right knee total arthroplasty with Sagar robot. pt transferred to PACU in stable condition. Dressing is dry. pt is awake and alert. pt can wiggle toes and plantarflex and dorsiflex foot. Able to test straight leg raise due to postop pain and weakness. Unable to assess sensation to foot due to spinal anesthetic. Distal pulses are palpable toes are warm and well-perfused. Cap refill is normal and under 2 seconds. Pain is controlled. Exam: awake Disposition: admitted
--- NOTE | 2023-06-10 15:00 | ANE.PACU2 ---
Inpatient post-anesthesia follow up: Airway intact: Yes Vital signs: Temperature 97.5 F Pulse Rate 76 Respiratory Rate 18 Blood Pressure 106/53 Pulse Oximetry 97 Oxygen Delivery Me thod Room Air Oxygen Flow Rate 6 Fraction of Inspir ed Oxygen Hydration adequate: Yes Nausea and vomiting: No Pain level: 1 Mental status: Baseline
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
[2023-06-10] MEDS: calcium carb-vit d 600mg/400unit 1 Tablet 1 EACH PO (17:50)
[2023-06-10] MEDS: iron polysaccharide complex 150 mg Capsule PO (17:50)
[2023-06-10] MEDS: mupirocin oint 22 gm 1 APPLIC NASAL (17:52)
[2023-06-10] MEDS: chlorhexidine gluconate 0.12% Btl 473 mL 30 ML MUCOUS MEM ×2 (17:53→20:23)
[2023-06-10] MEDS: lactated ringers 1,000 ML 100 ML IV (17:55)
[2023-06-10] MEDS: hydroxychloroquine 200 mg Tablet PO (18:13)
[2023-06-10] MEDS: albuterol 2.5 mg/3 mL Neb INHALATION (19:40)
[2023-06-10] MEDS: budesonide 0.5 mg/2 mL Neb INHALATION (19:40)
--- NOTE | 2023-06-10 19:43 | ECG_ITS ---
[facility] Test Date: 2023-06-10 Pat Name: Shelby Kruger Department: Room: 270 Gender: Female Hvac R Instructor: : 1965 Requested By: Magy Meredith Order Number: [id number] Farhan MD: Melvin Ritchie M.D. Measurements Intervals Zachary Rate: 76 P: 26 MT: 168 QRS: 49 QRSD: 84 T: 42 QT: 361 QTc: 407 Interpretive Statements SINUS RHYTHM INDETERMINATE AXIS POSSIBLE ANTERIOR MYOCARDIAL INFARCTION , PROBABLY OLD [30 ms Q WAVE IN V3/V4, OR R < 0.2 mV IN V4] No previous ECG available for comparison Electronically Signed On 06-10-2023 20:26:16 CDT by Melvin Ritchie M.D. [id number]
--- NOTE | 2023-06-10 20:07 | PC.NURSE ---
Dr. Odell notified that Eliquis and TXA are ordered to be given at the same time. Ordered to NOT give TXA.
--- NOTE | 2023-06-10 20:19 | PC.NURSE ---
Patient has Eliquis listed in her med rec. Patient states I don't take that at home. This has now been removed from med rec. Patient has Eliquis due at this time. Dr. Maldonado called to verify that Eliquis is still to be given to patient in this situation. Ordered to still give Eliquis.
[2023-06-10] MEDS: TRAMadol 50 mg Tablet PO (20:23)
[2023-06-10] MEDS: apixaban 5 mg Tablet 2.5 MG PO (20:23)
--- NOTE | 2023-06-10 21:51 | PC.NURSE ---
POC glucose 199 at this time.
[2023-06-10] MEDS: oxyCODONE 5 mg IR Tab/Cap PO (21:53)
[2023-06-10] MEDS: insulin lispro 100 unit/1 mL SUBCUT (21:53)
[2023-06-10] MEDS: HYDROmorphone 1 mg/mL INJ 1 mL 0.5 MG IVP (22:56)
[2023-06-11] VITALS (7 sets, daily range): BP systolic 95–108; BP diastolic 53–67; PULSE 69–87; RESP 15–18; TEMP 36.4–36.8; O2SAT 92–98
[2023-06-11] MEDS: oxyCODONE 5 mg IR Tab/Cap PO ×2 (02:11→06:03)
[2023-06-11] MEDS: acetaminophen 1,000 MG/100 ML PIGGYBACK 400 MG IV ×2 (02:11→11:04)
[2023-06-11] MEDS: ceFAZolin 2,000 MG in sodium chloride 0.9% (plus) 50 ML 100 MG IV ×2 (03:36→12:11)
[2023-06-11] MEDS: lactated ringers 1,000 ML 100 ML IV (03:36)
[2023-06-11 05:51] LABS: Glucose Point of Care 78 mg/dL (70-110)
[2023-06-11 06:09] LABS: Basophils % 0.1 %; Hematocrit 31.3 % (36-47); Lymphocytes # 0.7 10^3/uL (0.8-4.8); Mean Corpuscular HGB Conc 32.3 g/dL (30-55); Mean Corpuscular Hemoglobin 29.3 pg (27-33); Mean Corpuscular Volume 90.7 fl (85-98); Mean Platelet Volume 9.8 fL (7.4-10.4); Monocytes # 0.8 10^3/uL (0.2-0.9); Monocytes % 7.5 %; Neutrophils # 9.43 10^3/uL (1.8-7.7); Neutrophils % 85.9 %; Nucleated Red Blood Cells % 0 %; Platelet Count 184 10^3/cmm (157-399); Red Blood Count 3.45 10^6/uL (3.85-5.65); Red Cell Distribution Width 12.5 % (12.1-15.1); White Blood Count 10.97 10^3/uL (3.29-11.43)
[2023-06-11 06:29] LABS: Blood Urea Nitrogen 28 mg/dL (8-23); Calcium 8.4 mg/dL (8.5-10.5); Carbon Dioxide 24 mmol/L (22-29); Chloride 106 mmol/L (98-107); Glomerular Filtration Rate 30.7 mL/min (90-130); Glucose 130 mg/dL (65-115); Magnesium 1.8 mg/dL (1.7-2.3); Osmolality Calculated 291 mOsm/kg (285-295); Sodium 137 mmol/L (136-145)
--- NOTE | 2023-06-11 07:53 | PM.PN ---
Subjective Subjective: Patient is doing well. No acute events overnight. Patient was able to get up and ambulate yesterday and Mendiola came out this morning. Vitals/I&O/Wt Last Vital Signs Temp 97.6 F 06/11/23 07:25 Pulse 75 06/11/23 07:25 Resp 15 06/11/23 07:25 BP 95/58 06/11/23 07:25 Pulse Ox 98 06/11/23 07:25 O2 Del Method Nasal Cannula 06/11/23 07:25 O2 Flow Rate 6 06/10/23 14:33 06/10/23 06/11/23 06/11/23 22:59 06:59 14:59 Intake Total 490 / 1750 1118.333 / 2868.333 Output Total 650 / 925 500 / 1425 Balance -160 / 825 618.333 / 1443.333 Weight last 48 hrs Weight 230 lb Physical Exam Const: COMMON NORMALS: no acute distress, healthy appearing and alert Resp: COMMON NORMALS: normal respiratory effort EFFORT & INSPECTION: Yes able to speak in complete sentences and No respiratory distress Extremity: NARRATIVE EXTREMITY EXAM: Right knee?Zelalem wrap and dressing is dry and in place. Patient's toes are warm and well-perfused and cap refill is normal and under 2 seconds. Pedal pulse 2+. Normal dorsiflexion and plantarflexion. Patient able to perform straight leg raise, femoral nerve intact. Sensation to all of foot intact. Neuro: SENSORIUM/ORIENTATION: Yes alert Urinary Catheter Management: Mendiola: Cath Placed During This Visit: yes, but has since been removed by the nurse Reason for Continuing Indwelling Catheter: Decision to DC Catheter Urinary Catheter Date of Insertion: 06/10/23 Urinary Catheter Time of Insertion: 12:00 Date Urinary Catheter Removed: 06/11/23 Time Urinary Catheter Discontinued: 06:08 Data 06/11/23 05:53 06/11/23 05:53 Xray Ortho: My impression: Post op xrays in PACU showed normal intact hardware in place. A&P Assessment and plan (1) Status post total right knee replacement: Patient is POD 1 from right total knee replacement surgery. PACU imaging reviewed and she has a stable total knee arthroplasty. continue Total knee physical therapy per protocol. Keep incisions clean dry and intact, leave Piko bandage dressings on in place for 7 days after that may rinse incisions with warm soapy water pat dry and redress with a dry dressing. Patient may weight-bear as tolerate to the operative extremity Utilize crutches as needed Encourage knee range of motion Ice and elevate as needed for pain and swelling Complete post operative antibiotics Take pain medication as prescribed The prescribed Eliquis twice daily for the next 14 days for blood clot prevention No baths or soaks Follow-up in the orthopedic office in 2 weeks Contact the office for any questions or concerns Patient is stable for discharge home and can follow-up with orthopedic clinic in 2 weeks. Attestations Medical Necessity Statement*: Ongoing care. Coding Level of Care Code Acute Code for Chg Fwd Diagnoses Status post total right knee replacement Z96.651
[2023-06-11] MEDS: budesonide 0.5 mg/2 mL Neb INHALATION (08:27)
[2023-06-11] MEDS: albuterol 2.5 mg/3 mL Neb INHALATION (08:27)
[2023-06-11] MEDS: ondansetron 2 mg/ML SDV 2 mL 4 MG IVP (08:51)
--- NOTE | 2023-06-11 09:40 | PC.CHAP ---
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 [] Patient/Family/Request visit [] Outpatient visit [] Follow-up visit [] Physician referral [] Code/Alert [] Routine visit [] Staff referral [] Actively dying [] Patient sleeping [] Family support [] [] Out of room [] Palliative care [] [] Receiving care in room [] Pre-surgical visit [] Trauma [] Long length of stay [] ICU visit [] Other: Relational/Emotional Strength [] Patient feels connected with others/family/visitors/staff [] Distress [] Loneliness/isolation [] Abandonment Spirituality of Patient [] Person of [place] [] Attends Church of their [place] [] Believes in Prayer [] Reads Bible or Rastafari materials [x] There are Spiritual issues to be addressed [place] Interventions [] Prayer [] Active listening [] Non-anxious presence [] Spiritual/emotional support [] Crisis/trauma care [] Spiritual counseling [] Bereavement support [] Provided bereavement packet [] Provided Bible/devotional materials [] Provided toy/stuffed animal, coloring book to patient or family member [] Provided Communion [] Anointing/[place] [] Salvation [] Completed spiritual assessment [] Other: Impact on Illness or Injury [] Angry [] Fearful [] Anxious [] Often cries [] Exhaustion [] Unable to work [] Unable to attend alevism [] Unable to walk/stand [] Unable to read [] Unable to drive [] Unable to eat/drink [] Unable to sleep [] Unable to be with family [] Patient intubated [] Other: Summary Time spent with patient
[2023-06-11] MEDS: multivitamin therapeutic Tablet 1 TAB PO (09:47)
[2023-06-11] MEDS: docusate sodium 100 mg Capsule PO (09:47)
[2023-06-11] MEDS: montelukast sodium 10 mg Tablet PO (09:47)
[2023-06-11] MEDS: lisinopril 5 mg Tablet PO (09:47)
[2023-06-11] MEDS: hydroxychloroquine 200 mg Tablet PO (09:47)
[2023-06-11] MEDS: pantoprazole DR 40 mg Tablet PO (09:47)
[2023-06-11] MEDS: calcium carb-vit d 600mg/400unit 1 Tablet 1 EACH PO (09:47)
[2023-06-11] MEDS: atorvastatin 40 mg Tablet 20 MG PO (09:47)
[2023-06-11] MEDS: apixaban 5 mg Tablet 2.5 MG PO (09:49)
[2023-06-11] MEDS: iron polysaccharide complex 150 mg Capsule PO (09:49)
[2023-06-11] MEDS: chlorhexidine gluconate 0.12% Btl 473 mL 30 ML MUCOUS MEM ×2 (09:50→13:19)
[2023-06-11 10:23] LABS: Glucose Point of Care 138 mg/dL (70-110)
[2023-06-11 10:23] LABS: Glucose Point of Care 199 mg/dL (70-110)
--- NOTE | 2023-06-11 10:45 | PM.PN ---
Subjective Subjective: Patient was seen this morning, she felt nauseous with physical therapy, currently sitting in bed, receiving fluid therapy, no lightheadedness, no dizziness, no fevers, no chills, no cough, she plans on going home, Vitals/I&O/Wt Last Vital Signs Temp 97.6 F 06/11/23 07:25 Pulse 79 06/11/23 08:28 Resp 16 06/11/23 08:28 BP 95/58 06/11/23 07:25 Pulse Ox 92 06/11/23 08:28 O2 Del Method Room Air 06/11/23 08:28 O2 Flow Rate 6 06/10/23 14:33 06/10/23 06/11/23 06/11/23 22:59 06:59 14:59 Intake Total 490 / 1750 1118.333 / 2868.333 240 / 240 Output Total 650 / 925 500 / 1425 Balance -160 / 825 618.333 / 1443.333 240 / 240 Weight last 48 hrs Weight 104.326 kg Physical Exam Const: COMMON NORMALS: no acute distress and patient oriented x3 Resp: COMMON NORMALS: normal respiratory effort, No retractions, No use of accessory muscles and clear to auscultation bilaterally AUSCULTATION: clear to auscultation bilaterally Cardio: COMMON NORMALS: regular rate, regular rhythm, S1 normal heart sound present and S2 normal heart sound present RATE: regular rate RHYTHM: regular rhythm HEART SOUNDS: S1 normal heart sound present and S2 normal heart sound present GI: COMMON NORMALS: Normal to inspection, nondistended, normoactive bowel sounds present and non-tender Extremity: COMMON NORMALS: no pedal edema NARRATIVE EXTREMITY EXAM: Right knee wrapped Neuro: COMMON NORMALS: patient oriented x3 Psych: COMMON NORMALS: mental status grossly normal Urinary Catheter Management: Mendiola: Cath Placed During This Visit: yes, but has since been removed by the nurse Reason for Continuing Indwelling Catheter: Decision to DC Catheter Urinary Catheter Date of Insertion: 06/10/23 Urinary Catheter Time of Insertion: 12:00 Date Urinary Catheter Removed: 06/11/23 Time Urinary Catheter Discontinued: 06:08 Data 06/11/23 05:53 06/11/23 05:53 A&P Assessment and plan (1) Status post total right knee replacement: POD 1, Dr Vizcarra surgeon (2) Chronic kidney disease: Stage 3b at baseline, creatinine 1.4-1.9 since mid 2021 (3) Diabetes: Type II, non insulin requiring with CKD 3b, on metformin (4) Hypertension: Essential or primary, on lisinopril, which also provides renal protection for kidneys (5) Hyperlipidemia: Type unknown, on statin therapy (6) PVD (peripheral vascular disease): Details unknown, pulses intact on examination (7) Asthma: Chronically with albuterol as needed and budesonide/formoterol inhaler and singulair, not currently acutely exacerbated though has had some rhinorrhea. (8) Rheumatoid factor positive: with either seropositive RA or inflammatory OA, followed by rheumatology. On Plaquenil chronically along with glucosamine, diclofenac gel. Has a prescription for as needed prednisone but has never taken it. Plan Creatinine today 1.7, hydrate well, follow-up with primary care provider as outpatient for recheck kidney function VTE prophylaxis: Eliquis GI Prophylaxis: Protonix Telemetry: Not currently indicated Mendiola: Currently in place with orders to remove postop day 1 Line(s): Peripheral IV Disposition plan: Anticipate discharge home with home health and outpatient follow-up Code Status: Full code Attestations Medical Necessity Statement*: Patient will be discharged today after right knee replacement Diagnoses Status post total right knee replacement Z96.651 Chronic kidney disease N18.9 Diabetes E11.9 Hypertension I10 Hyperlipidemia E78.5 PVD (peripheral vascular disease) I73.9 Asthma J45.909 Rheumatoid factor positive R76.8
[2023-06-11] MEDS: mupirocin oint 22 gm 1 APPLIC NASAL (11:03)
[2023-06-11 11:38] LABS: Glucose Point of Care 145 mg/dL (70-110)
[2023-06-11] MEDS: insulin lispro 100 unit/1 mL SUBCUT (12:12)
--- NOTE | 2023-06-11 12:30 | P.DS_ITS ---
Discharge Providers Date of Admission: 06/10/23 14:40 Date of Discharge: 06/11/2023 Attending Provider at Admission: Andrea Vizcarra DO Attending Provider at Discharge: Andrea Vizcarra DO Consults: Dr. Meredith?hospitalist Primary Care Provider: Dona Hirsch DO Diagnoses at Discharge Discharge Diagnosis (1) Status post total right knee replacement: Status: Acute Reason for Visit Reason for Visit: 95027, M17.11 Brief History: Right knee degenerative joint disease failed conservative treatment, right total knee arthroplasty Sagar robotic assisted Hospital Course Hospital Course Patient presented to the preoperative holding area with plan for right total knee arthroplasty after patient has been worked up in the outpatient setting for failed conservative treatment of right knee degenerative joint disease.? Once cleared by anesthesia for surgery patient subsequently was taken back to the operative suite? underwent? anesthesia per anesthesia department and then subsequently underwent a right total knee arthroplasty.? Procedure was performed without any complications patient was taken to PACU in stable condition patient? recovered well in PACU and then was admitted to the floor postoperatively internal medicine was consulted and on board for medical management and assistance with care.? Patient received appropriate PT/OT, postoperative a ntibiotics, postoperative TXA, pain control, postoperative DVT prophylaxis.? Elevation and ice.? Patient encouraged for knee range of motion allowed weightbearing as tolerated to the operative lower extremity.? Dressing was changed as needed, labs were monitored daily.?? Patient recovered well postoperatively and worked well and progressed well with therapy.? It was determined on postoperative day 1 the patient was stable for discharge from an orthopedic standpoint and medicine.? Patient was comfortable with discharge and plan was discharged home.? Patient received appropriate discharge instructions as well as pain medication and DVT prophylaxis postoperatively.? Given appropriate instructions for? dressing management.? Patient will follow-up with Dr. Vizcarra/orthopedics in the office in 2 weeks.? All questions answered.? Understand if there is any issues questions or concerns and contact the office. Physical Exam Const: COMMON NORMALS: no acute distress, healthy appearing and alert Resp: COMMON NORMALS: normal respiratory effort EFFORT & INSPECTION: Yes able to speak in complete sentences and No respiratory distress Extremity: NARRATIVE EXTREMITY EXAM: Right knee?Zelalem wrap and dressing is dry and in place. Patient's toes are warm and well-perfused and cap refill is normal and under 2 seconds. Pedal pulse 2+. Normal dorsiflexion and plantarflexion. Patient able to perform straight leg raise, femoral nerve intact. Sensation to all of foot intact. Neuro: SENSORIUM/ORIENTATION: Yes alert Urinary Catheter Management: Mendi[place]: Cath Placed During This Visit: yes, but has since been removed by the nurse Reason for Continuing Indwelling Catheter: Decision to DC Catheter Urinary Catheter Date of Insertion: 06/10/23 Urinary Catheter Time of Insertion: 12:00 Date Urinary Catheter Removed: 06/11/23 Time Urinary Catheter Discontinued: 06:08 Discharge Data Studies Completed and Pending Completed Studies During Hospitalization Category Date Time Status XR knee RT 3V* [id number] Stat Exams 06/10/23 14:22 Completed Laboratory Results WBC 10.97 10^3/uL (3.29-11.43) 06/11/23 05:53 RBC 3.45 10^6/uL (3.85-5.65) L 06/11/23 05:53 Hgb 10.10 g/dL (11.27-16.99) L 06/11/23 05:53 Hct 31.3 % (36-47) L 06/11/23 05:53 MCV 90.7 fl (85-98) 06/11/23 05:53 MCH 29.3 pg (27-33) 06/11/23 05:53 MCHC 32.3 g/dL (30-55) 06/11/23 05:53 RDW 12.5 % (12.1-15.1) 06/11/23 05:53 Plt Count 184 10^3/cmm (157-399) 06/11/23 05:53 MPV 9.8 fL (7.4-10.4) 06/11/23 05:53 Neut % (Auto) 85.9 % 06/11/23 05:53 Lymph % (Auto) 6.0 % 06/11/23 05:53 [place] % (Auto) 7.5 % 06/11/23 05:53 Eos % (Auto) 0.0 % 06/11/23 05:53 Baso % (Auto) 0.1 % 06/11/23 05:53 Neut # (Auto) 9.43 10^3/uL (1.8-7.7) H 06/11/23 05:53 Lymph # (Auto) 0.7 10^3/uL (0.8-4.8) L 06/11/23 05:53 [place] # (Auto) 0.8 10^3/uL (0.2-0.9) 06/11/23 05:53 Eos # (Auto) 0.0 10^3/uL (0.0-0.8) 06/11/23 05:53 Baso # (Auto) 0.0 10^3/uL (0.0-0.1) 06/11/23 05:53 Nucleated RBC % (auto) 0 % 06/11/23 05:53 Nucleated RBCs # 0.0 /100WBC 06/11/23 05:53 Sodium 137 mmol/L (136-145) 06/11/23 05:53 Potassium 5.0 mmol/L (3.5-5.1) 06/11/23 05:53 Chloride 106 mmol/L (98-107) 06/11/23 05:53 Carbon Dioxide 24 mmol/L (22-29) 06/11/23 05:53 Anion Gap 12.0 (5-19) 06/11/23 05:53 BUN 28 mg/dL (8-23) H 06/11/23 05:53 Creatinine 1.7 mg/dL (0.5-0.9) H 06/11/23 05:53 GFR Calculation 30.7 mL/min (90-130) L 06/11/23 05:53 Glucose 130 mg/dL (65-115) H 06/11/23 05:53 POC Glucose 145 mg/dL (70-110) H 06/11/23 11:18 Calculated Osmolality 291 mOsm/kg (285-295) 06/11/23 05:53 Calcium 8.4 mg/dL (8.5-10.5) L 06/11/23 05:53 Magnesium 1.8 mg/dL (1.7-2.3) 06/11/23 05:53 Blood Type O Positive 06/10/23 10:00 Rho(D) Type Positive 06/10/23 10:00 Antibody Screen Negative 06/10/23 10:00 Imaging Xray Ortho: Radiologist's impression: Ordering Provider/Ordering MD: Andrea Vizcarra Date of Service: 06/10/23 Procedure(s): XR knee RT 3V* [id number] Accession Number(s): [id number] Report Number: [id number] WS: [id number] Exam: XR knee RT 3V* [id number] Date/Time of Exam: 06/10/2023 2:45 PM Reason For Exam: Status post right TKA Comparison 04/22/2023. Total knee prosthesis is in place in excellent position. Postoperative changes in the adjacent soft tissues. Anterior surgical skin clips. Healed fracture of the lower femur. IMPRESSION: 1. Total knee replacement in excellent position. Procedures Performed Right total knee arthroplasty, Sagar robotic assisted Vitals Last Vital Signs Temp 98.3 F 06/11/23 14:00 Pulse 69 06/11/23 14:00 Resp 16 06/11/23 14:00 BP 108/67 06/11/23 14:00 Pulse Ox 96 06/11/23 14:00 O2 Del Method Room Air 06/11/23 11:20 O2 Flow Rate 6 06/10/23 14:33 Discharge Plan Discharge Patient Disposition: Home Health Service Condition: Stable Prescriptions: Continued Glucosamine Chondroitin 550-30-1 mg capsule 1 cap PO DAILY pantoprazole 40 mg tablet,delayed release (DR/EC) 40 mg PO DAILY atorvastatin 20 mg tablet 20 mg PO DAILY montelukast 10 mg tablet 10 mg PO DAILY albuterol sulfate [ProAir HFA] 90 mcg/actuation HFA aerosol inhaler 2 puff inhalation Q6H PRN (Reason: Allergy Symptoms) budesonide-formoterol [Symbicort] 160-4.5 mcg/actuation HFA aerosol inhaler 2 puff inhalation BID lisinopril 10 mg tablet 5 mg PO DAILY metformin 500 mg tablet 500 mg PO DAILY diclofenac sodium [Voltaren Arthritis Pain] 1 % gel 4 g topical QID Qty: 100 3RF Rx Instructions: apply to single knee, ankle, foot; for foot includes sole/toes/top of foot (DME) KNEE BRACE See Rx Instructions .Route .MEDSUPPLY Qty: 1 0RF Rx Instructions: As directed prednisone 5 mg tablet 5 mg PO DAILY Qty: 30 0RF No Action Percocet 5-325 mg tablet 1 tab PO Q6H PRN (Reason: pain) 7 Days Qty: 28 0RF hydroxychloroquine 200 mg tablet 200 mg PO BID 30 Days Qty: 60 4RF Discharge Orders: Discharge Order (Routine); Ordered 06/11/23 Ordered By: Andrea Vizcarra [place] [facility] [place] [facility] [place]Outside] Andrea Vizcarra DO [Physician] - 06/27/23 9:30 am Discharge Diet: Regular Discharge Activity: Limit activity as instructed Patient Instructions: Oxycodone/Acetaminophen (By mouth) (Percocet, Roxicet), Ondansetron (By mouth), Apixaban (By mouth), Precautions after Total Joint Replacement Surgery (GEN), Total Knee Replacement (GEN), Joint Replacement Stoplight, Opioid Safety Activity Restrictions/Additional Instructions: Orthopedic discharge instructions keep incisions clean dry and intact, leave sherron bandage dressings on in place for 7 days after that may rinse incisions with warm soapy water pat dry and redress with a dry dressing. Patient may weight-bear as tolerate to the operative extremity Utilize crutches/walker as needed Encourage knee range of motion Ice and elevate as needed for pain and swelling Take pain medication as prescribed Take antinausea medication as needed The prescribed Eliquis twice daily for the next 14 days for blood clot prevention No baths or soaks Follow-up in the orthopedic office in 2 weeks Contact the office for any questions or concerns -Your GFR is 30.7, you are on metformin 500 mg once daily, please have your primary care provider follow your kidney function, if your kidney function drops below 30, to recommended to discontinue metformin Discharge Attestations Time Spent in Discharge Care*: less than 30 min Quality Metrics Clinical Quality Measures [ No reported AMI, CVA or VTE this stay] Coding Level of Care Code Acute Code for Chg Fwd Diagnoses Status post total right knee replacement Z96.651 Time Spent (min) 25
== END 2023-06-11 13:59 | disposition home health service (06) ==
LOC: MEDSURG 14:40
PROVIDERS: Hospitalist; Admitting Provider Student in an Organized Health Care Education/Training Program; PCP Family Medicine; Visit Provider Student in an Organized Health Care Education/Training Program
PROC: 8E0Y0CZ Robotic Assisted Procedure of Lower Extremity, Open Approach (ICD-10-PCS; CPT 27447; principal; 2023-06-10 11:10)
DX: M17.11 Unilateral primary osteoarthritis, right knee (principal); Z96.651 Presence of right artificial knee joint; E11.22 Type 2 diabetes mellitus with diabetic chronic kidney disease; I12.9 Hypertensive chronic kidney disease with stage 1 through stage 4 chronic kidney disease, or unspecified chronic kidney disease; N18.9 Chronic kidney disease, unspecified; E78.5 Hyperlipidemia, unspecified; I73.9 Peripheral vascular disease, unspecified; J45.909 Unspecified asthma, uncomplicated; R76.8 Other specified abnormal immunological findings in serum; E66.01 Morbid (severe) obesity due to excess calories; Z68.41 Body mass index [BMI] 40.0-44.9, adult
CPT/HCPCS: 0055T; 27447; 36415; 36416; 51702; 73562; 80048; 82962; 83735; 85025; 86850; 86900; 93005; 94640; 96372; 97110; 97116; 97161; 97167; 97530; C1713; C1776; G0378; J0131; J0171; J0690; J1100; J1170; J1815; J1885; J2250; J2405; J2704; J2795; J3010; J3370; J3535; J7120; J7613; J7626; P9045

== ENCOUNTER → 2023-06-20 07:36 | Outpatient (BNVA) | payer MEDICARE, SELFPAY | PROVIDERS: PCP Family Medicine; Visit Provider Podiatrist Foot & Ankle Surgery | DX: R76.8 Other specified abnormal immunological findings in serum; N28.9 Disorder of kidney and ureter, unspecified; L60.3 Nail dystrophy; I73.9 Peripheral vascular disease, unspecified; L85.1 Acquired keratosis [keratoderma] palmaris et plantaris; E11.8 Type 2 diabetes mellitus with unspecified complications; Z79.84 Long term (current) use of oral hypoglycemic drugs | CPT/HCPCS: 11721; 17110 ==

== ENCOUNTER → 2023-06-27 10:05 | Outpatient (BNVA) | payer MEDICARE, SELFPAY | PROVIDERS: PCP Family Medicine; Visit Provider Student in an Organized Health Care Education/Training Program | DX: Z96.651 Presence of right artificial knee joint (principal) | CPT/HCPCS: 73560; 73565; 99024 ==

== ENCOUNTER 2023-07-08 14:30 | Outpatient (RCR) | payer MEDICARE, SELFPAY | END 2023-07-13 23:59 | disposition home or self-care (01) | LOC: SPT 14:30 | PROVIDERS: PCP Family Medicine; Visit Provider Student in an Organized Health Care Education/Training Program | DX: Z47.1 Aftercare following joint replacement surgery (principal); Z96.651 Presence of right artificial knee joint | CPT/HCPCS: 97161 ==

== ENCOUNTER 2023-07-23 08:46 | Outpatient (RCR) | payer MEDICARE, SELFPAY | END 2023-08-13 23:59 | disposition home or self-care (01) | LOC: SPT 08:46 | PROVIDERS: PCP Family Medicine; Visit Provider Student in an Organized Health Care Education/Training Program | DX: Z47.1 Aftercare following joint replacement surgery (principal); Z96.651 Presence of right artificial knee joint | CPT/HCPCS: 97110 ==

== ENCOUNTER → 2023-07-24 10:51 | Outpatient (BNVA) | payer MEDICARE, SELFPAY | PROVIDERS: PCP Family Medicine; Visit Provider Internal Medicine | DX: M54.2 Cervicalgia (principal); R76.8 Other specified abnormal immunological findings in serum; N18.9 Chronic kidney disease, unspecified; M25.569 Pain in unspecified knee | CPT/HCPCS: 99214 ==

== ENCOUNTER 2023-08-07 12:44 | Outpatient (CLI) | payer MEDICARE, SELFPAY ==
--- NOTE | 2023-08-07 12:51 | XR_ITS ---
WS: [id number] Exam: XR chest 2V* [id number] Date/Time of Exam: 08/07/2023 12:56 PM Reason For Exam: Acute cough, Covid infection No priors. The lungs are clear and fully expanded. Normal cardiomediastinal silhouette. No pleural effusions. [place] structures are intact. Increased thoracic kyphosis and mild degenerative change. There is a 2.5 cm laminated calcification in the mid RIGHT abdomen that likely represents a large gallstone. IMPRESSION: 1. No acute cardiopulmonary process identified. 2. Prominent laminated calcification in the RIGHT abdomen which may represent a large gallstone.
== END 2023-08-07 12:45 | disposition home or self-care (01) ==
PROVIDERS: PCP Family Medicine; Visit Provider Family Medicine
DX: R05.1 Acute cough (principal)
CPT/HCPCS: 71046

== ENCOUNTER 2023-08-15 12:27 | Outpatient (RCR) | payer SELFPAY | END 2023-08-28 23:59 | disposition home or self-care (01) | LOC: SPT 12:27 | PROVIDERS: PCP Family Medicine; Visit Provider Student in an Organized Health Care Education/Training Program | DX: Z47.1 Aftercare following joint replacement surgery (principal); Z96.651 Presence of right artificial knee joint | CPT/HCPCS: 97110 ==

== ENCOUNTER → 2023-08-16 08:33 | Outpatient (BNVA) | payer MEDICARE, SELFPAY | PROVIDERS: PCP Family Medicine; Visit Provider Physician Assistant | DX: Z96.651 Presence of right artificial knee joint (principal) | CPT/HCPCS: 73560; 73565 ==

== ENCOUNTER → 2023-08-27 13:58 | Outpatient (BNVA) | payer MEDICARE, SELFPAY | PROVIDERS: PCP Family Medicine; Visit Provider Physician Assistant | DX: M17.12 Unilateral primary osteoarthritis, left knee; M25.562 Pain in left knee; Z01.818 Encounter for other preprocedural examination | CPT/HCPCS: 36415; 73560; 73565; 80053; 81001; 85025; 99214 ==

== ENCOUNTER → 2023-08-28 13:34 | Outpatient (BNVA) | payer MEDICARE, SELFPAY | PROVIDERS: PCP Family Medicine; Visit Provider Podiatrist Foot & Ankle Surgery | DX: I73.9 Peripheral vascular disease, unspecified (principal); L60.3 Nail dystrophy; L85.1 Acquired keratosis [keratoderma] palmaris et plantaris; R76.8 Other specified abnormal immunological findings in serum; N28.9 Disorder of kidney and ureter, unspecified; E11.69 Type 2 diabetes mellitus with other specified complication; Z79.84 Long term (current) use of oral hypoglycemic drugs | CPT/HCPCS: 11721; 17110 ==

== ENCOUNTER → 2023-09-02 11:07 | Outpatient (BNVA) | payer MEDICARE, SELFPAY | PROVIDERS: PCP Family Medicine; Visit Provider Family Medicine | DX: Z01.818 Encounter for other preprocedural examination (principal) | CPT/HCPCS: 81003 ==

== ENCOUNTER 2023-09-03 15:20 | Outpatient (CLI) | payer MEDICARE, SELFPAY ==
--- NOTE | 2023-09-03 16:00 | CT_ITS ---
WS: [id number] CT LEFT KNEE, NONCONTRAST TECHNIQUE: Noncontrast CT of the LEFT knee to include the LEFT hip and ankle. CLINICAL INFORMATION: M17.12 - Unilateral primary osteoarthritis, left knee COMPARISON: None. DLP: 994 mgy/cm All CT scans at [facility] use at least one of these dose optimization techniques: automated e xposure control; mA and/or kV adjustment per patient size (includes targeted exams where dose is matc hed to clinical indication); or iterative reconstruction. FINDINGS: Advanced degenerative arthritis LEFT knee worse in the medial joint compartment. Hypertrophic patella . Advanced narrowing patellofemoral articulation. Prior healed fracture deformity LEFT femoral shaft. Small suprapatellar effusion. Hypertrophic patella. Hypertrophic changes along the joint line. IMPRESSION: Images obtained for preoperative purposes.
== END 2023-09-03 15:21 | disposition home or self-care (01) ==
LOC: RAD 15:20
PROVIDERS: PCP Family Medicine; Visit Provider Physician Assistant
DX: M17.12 Unilateral primary osteoarthritis, left knee (principal)
CPT/HCPCS: 73700

== ENCOUNTER 2023-09-16 15:46 | Observation (INO) | payer MEDICARE, SELFPAY ==
[2023-09-16] VITALS (23 sets, daily range): BP systolic 90–127; BP diastolic 50–91; PULSE 75–103; RESP 15–20; TEMP 36.1–36.7; O2SAT 90–99; BMI 40.8
[2023-09-16 08:28] LABS: Glucose Point of Care 98 mg/dL (70-110)
[2023-09-16] MEDS: lactated ringers 500 ML IV (08:33)
[2023-09-16] MEDS: scopolamine 1.5 Patch 1 PATCH TRANSDERMA (08:34)
[2023-09-16] MEDS: sodium chloride 0.9% 1,000 ML 30 ML IV (08:35)
[2023-09-16] MEDS: acetaminophen 1,000 MG/100 ML PIGGYBACK 400 MG IV ×3 (08:35→23:32)
[2023-09-16] MEDS: ketorolac 30 mg/mL INJ IVP (08:35)
[2023-09-16 08:38] LABS: Basophils # 0.1 10^3/uL (0.0-0.1); Eosinophils # 0.5 10^3/uL (0.0-0.8); Eosinophils % 8.3 %; Hematocrit 40.4 % (36-47); Lymphocytes # 1.6 10^3/uL (0.8-4.8); Lymphocytes % 27.9 %; Mean Corpuscular HGB Conc 32.2 g/dL (30-55); Mean Corpuscular Volume 90.2 fl (85-98); Mean Platelet Volume 9.6 fL (7.4-10.4); Monocytes # 0.4 10^3/uL (0.2-0.9); Monocytes % 7.1 %; Neutrophils # 3.21 10^3/uL (1.8-7.7); Neutrophils % 55.4 %; Nucleated Red Blood Cells % 0 %; Platelet Count 266 10^3/cmm (157-399); Red Blood Count 4.48 10^6/uL (3.85-5.65); Red Cell Distribution Width 13.2 % (12.1-15.1)
[2023-09-16 08:58] LABS: Anion Gap 15.4 (5-19); Blood Urea Nitrogen 29 mg/dL (8-23); Calcium 9.2 mg/dL (8.5-10.5); Carbon Dioxide 23 mmol/L (22-29); Chloride 108 mmol/L (98-107); Glomerular Filtration Rate 30.7 mL/min (90-130); Glucose 104 mg/dL (65-115); Osmolality Calculated 300 mOsm/kg (285-295); Potassium 4.4 mmol/L (3.5-5.1); Sodium 142 mmol/L (136-145)
--- NOTE | 2023-09-16 09:36 | W.PM.OPSUD ---
Surgery/Procedure H&P Update DATE OF PROCEDURE: September 16, 2023 DATE H&P PERFORMED: 09/02/23 H&P UPDATE INFORMATION: I have reviewed H&P completed within last 30 days, I have examined patient prior to procedure and No changes to prior documentation PREOP DIAGNOSIS: Left Knee DJD PRIMARY INDICATION FOR PROCEDURE: Left knee degenerative joint disease PLANNED PROCEDURE: Operation Date: 09/16/23 10:10 Proposed Procedures p Sagar Robot Total Knee Arthroplasty(Left) - Andrea Vizcarra DO
--- NOTE | 2023-09-16 09:51 | XR_ITS ---
WS: [id number] KNEE LEFT TECHNIQUE: 2 views of the left knee CLINICAL INFORMATION: post L TKA COMPARISON: None. FINDINGS: Postoperative changes LEFT TKA. Hardware appears in good position. Surgical david. Expected postope rative changes with fluid and edema. Patellar resurfacing. IMPRESSION: Normal postoperative LEFT TKA Kellgren-Tc Classification:
[2023-09-16] MEDS: ceFAZolin 2,000 MG in sodium chloride 0.9% (plus) 50 ML 100 MG IV ×2 (10:12→17:37)
[2023-09-16] MEDS: tranexamic acid 1,000 mg/10mL SDV 1000 MG IV (10:51)
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
[2023-09-16] MEDS: ROPivacaine 0.5% SDV 30 mL 200 MG INJECTION (11:13)
[2023-09-16] MEDS: ketorolac 30 mg/mL INJ XX (11:15)
[2023-09-16] MEDS: EPINEPHrine 1 mg/mL INJ XX (11:15)
[2023-09-16] MEDS: tranexamic acid 1,000 mg/10mL SDV 1000 MG XX (11:16)
[2023-09-16] MEDS: vancomycin 1,000 MG SDV 2000 MG XX (12:21)
--- NOTE | 2023-09-16 13:06 | PM.OP ---
Operative Report Date of procedure: September 16, 2023 Surgeon: Andrea Vizcarra DO Survey Methodologist: Taqueria Vizcarra PA-C: PA was necessary for assistance in this case with leg positioning retraction and protection of neurovascular structures as well as assistance in implantation wound closure and dressing application. Procedure: Preoperative diagnosis: Left knee degenerative joint disease Post-op diagnosis: Same Procedure done: Left total knee arthroplasty, cemented?robotic assisted Sagar Complex case?modifier 22?patient has significant extension deformity and healed fractures of the femur shaft as well as obesity that required extra time and attention with multiple adjustments on femur and tibia cuts to accommodate for patient's deformity. Implants: Emmanuel triathlon size 6 femur CR cemented?left Selma triathlon size? 6 tibia universal baseplate cemented Selma triathlon cemented 50 mm stem attached to tibial baseplate Emmanuel triathlon symmetric patella size 33 mm Emmanuel triathlon polyethylene 13mm Surgeon: Andrea Vizcarra DO Estimated blood?loss: 20 mL Tourniquet 97minutes IV fluids: 1400 mL Urine output: 200 mL Complications: None Condition: stable Disposition: floor Brief History: Patient is a 58-year-old female with with chronic?left knee degenerative joint disease.? Patient has remote history of left femur shaft fracture that was treated nonoperatively when she was younger. She has not noticed extension deformity of the femur shaft at baseline. Patient has been worked up in the outpatient setting in the orthopedic office at this point time through shared decision making given? eaul-va-hpdu arthritis as well as failed conservative treatment, and pt would?like to proceed with a?left total knee arthroplasty.? Through shared decision making elected to proceed with surgical intervention for?left total knee arthroplasty.? We talked about continued conservative treatment and surgical intervention as far as the risk benefits complications alternatives surgical and nonsurgical treatment options.? At this point time understanding patient risks with surgery he agrees to proceed with surgical intervention.? Once again? risk with surgery include but are not?limited to make it better make it worse blood clot, heart attack, stroke, on the table, infection, injury to nerves or vessels, persistent pain, arthrofibrosis, implant failure.? Understanding these risks patient agrees to proceed with surgical intervention consent was obtained in the office.? All questions answered. Procedure: Patient was seen and evaluated in the preoperative holding area.? Consent was reviewed and signed with patient with plan for?left total knee arthroplasty.? All questions answered.? Correct extremity marked.? Patient seen and evaluated by the anesthesia department and once cleared for surgery was taken back to the operative suite.? Patient was placed into a supine position on the OR table.? All bony prominences were well-padded.? Patient was appropriately secured to the bed.? Patient underwent anesthesia per the anesthesia department.? Patient received spinal anesthesia and? Mendiola catheter was placed.? A nonsterile tourniquet was applied to the?left thigh.? At this point in time a final timeout performed.? Patient received appropriate preoperative antibiotics and TXA. Next the?left?lower extremity was then prepped and draped in standard orthopedic fashion. Esmarch tourniquet was used exsanguinate the?left?lower extremity.? Tourniquet was insufflated to 250 mmHg. A standard anterior incision was made over midline of the knee.? Sharp scalpel excision through skin and subcutaneous tissue full-thickness skin flaps were made.? Fascia was elevated off of the extensor retinaculum was stable with medial parapatellar arthrotomy was then made.? The performed standard sequential releases..? Immediately on entry into the joint patient was found to have severe eburnated bone and tricompartmental arthritic changes noted.? With significant osteophyte formation.? Next the the patella was then stuffed and the knee was then flexed.?? Doe was placed superiorly around the anterior aspect of the femur this was freed of synovium and I subsequently then placed by 2 femur pins to establish my femur arrays for the Sagar robot.? These were then placed bicortically and? femur array was then appropriately secured with appropriate visualization.? Next attention was turned towards the tibial rays.? These were then drilled sequentially bicortically in parallel fashion and intraincisional.? I then placed my guide as well as my tibial array on in place.? This was appropriately secured and had excellent visualization with the Sagar robot.? Next the tibial checkpoint as well as femur checkpoint were then placed.? At this point time I then subsequently established my head center as well as my medial?lateral malleoli as well as my checkpoints.? Next utilizing standard My Pick Box technology I then mapped out the appropriate points and confirmation points around the femur as well as the tibia in standard fashion.? Once this was then done I then removed all osteophytes in preparation for dynamic testing.? All osteophytes were removed as well as I removed the ACL and the PCL was excised due to its significant tearing and degeneration noted.? At this point time the knee was brought into full extension and we performed our standard evaluation of our gap balancing stressing his?ligaments and extension as well as flexion appropriate adjustments were made to have appropriate gap balancing in both flexion and extension.? This plan for final counts.? We get a preoperative plan evaluating our implants which was a size 3 femur and a size 4 tibia.? Next we brought in the Sagar robot and sequentially made our femur cuts.? All excess bony cuts were then removed.? Finally we made our tibial cut.? After our initial tibial cut we did notice that there was still some residual uncut to be on the posterior medial surface that was significantly worn we had to dilate and are cut to roughly 1.5 to 2 degrees of varus to accommodate and capture the entire surface of the tibia which would accommodate for cement fixation. Patient's bone was soft and as result a plan for a longstem was used and she had this on the other side and patient's varus was within 3 degrees. Once this was done a standard PCL retractor was then placed into this position I excised the medial and?lateral meniscus.? The tibial cut was then subsequently removed all excess bony debris was removed.? I then utilized a?lamina bookmaker's clerk and remove the posterior osteophytes.? At this point time sized the tibia and confirmed this was a size 4.? I utilized our blunt probe to establish rotation of tibial implant.? Once this was done I then placed my tibia size 4 trial in appropriate position and then subsequently placed tibial pins to hold this into place placed a size 13 mm poly as well as a size 3 femur which was appropriately impacted in place knee was then subsequently brought into extension. Trials were then assessed,? this was stable with varus valgus stress in extension as well as had symmetrical translation when brought into flexion demonstrating symmetrical gaps. I had excellent balance gaps in flexion and extension with varus and valgus stresses.? At this point I was satisfied with these implants these were then verified and opened on the back table size 4 tibia, size3 femur,? size 13 mm polythickness.? We did confirm appropriate gap balancing and stresses as well as alignment utilizing? Sagar and were satisfied with this plan.? ?At this point time with my trials in place I then towel clip the patella everted this made appropriate measurements subsequently utilizing freehand technique performed by patellar resurfacing this was confirmed to be appropriate resection and subsequently sized to be a 33 mm symmetric.? My drill peg guides were then clamped and appropriate position and appropriate position in the patella for appropriate tracking and parallel with the joint.? Pegs were drilled trial implant was placed and the knee was then subsequently ranged and found to have excellent patellar tracking.? Femur pegs were then drilled.? Satisfied with our tibial placement rotation I then utilized the keel punch and prepped the tibia.? At this point time all of our trial implants were removed.? All checkpoints as well as guidepins and arrays were removed and appropriate counts made.? The wound bed? was thoroughly irrigated and dried and prepped for cementation.? Cement was mixed on the back table.? Once cement was ready this was then covered onto the tibia and the tibial baseplate was then impacted and all excess cement was removed.? Next the polyethylene was then impacted into place on the tibial baseplate.? Next cement was placed onto the femur as well as under the femur implants and impacted in to place and all excess cement was extruded and removed.? Knee was taken into full extension? to clear all excess cement was removed.? Warm saline was placed over the joint.? I then towel clip patella and dried for cementation. cemented the patella into place.? This was all clamped and the cement was allowed to cure.? Thorough irrigation performed with pulse?lavage.? I then placed my periarticular injection while the cement was curing.? Once cured the knee was taken through range of motion and had excellent stability and gaps were balanced in flexion and extension.? Tourniquet was then deflated. hemostasis satisfactory with electrocautery.? Next I then subsequently closed the capsule with Ethibond suture as well as a running strata fix suture.? Knee was then taken through range of motion 30 times.? Next the skin was then closed in?layered fashion of running stratifix sutures of deep and subcutenous tissue and skin.? ?closed in flexion and david and sherron was then placed over the incision.? Incision Covered with ABDs soft roll and Zelalem wrap.? Patient was then awakened from anesthesia and taken to PACU in stable condition. Disposition: Patient taken to PACU in stable condition will be admitted to the floor for pain control PT/OT weight-bear as tolerated?left?lower extremity dressing changes as needed, DVT prophylaxis. Pain control. Patient will receive appropriate postoperative antibiotics. patient will be seen today by the internal medicine team for medical management.? Patient will follow up with the office in 2 weeks.? Patient understands agrees with current plan.? All questions answered.
--- NOTE | 2023-09-16 13:20 | P.BOP_ITS ---
Date of Procedure: [September 16, 2023] Surgeon: [Dr. Carmita NELSON] Cdl Truck Driver(s): [Taqueria Vizcarra physician associate] Procedure(s) performed: [Left total knee arthroplasty with Sagar robot assist] Findings of the procedure(s): [Left knee degenerative joint disease] Estimated blood loss: [20 mL] Specimen(s) removed: [N/AA] Post-operative diagnosis: [Left knee degenerative joint disease]
--- NOTE | 2023-09-16 13:22 | P.PCN_ITS ---
PACU note Narrative: Patient is a 58-year-old female that just underwent left knee total arthroplasty. Pt transferred to PACU in stable condition. Dressing is dry. pt is awake and alert. Distal pulses are palpable toes are warm and well- perfused. Cap refill is normal and under 2 seconds. Patient can plantarflex and dorsiflex foot. Unable to further assess motor and sensation due to residual spinal anesthesia. Pain is controlled. Exam: awake Disposition: admitted
[2023-09-16] MEDS: oxyCODONE 5 mg IR Tab/Cap PO ×2 (14:12→20:24)
[2023-09-16] MEDS: fentaNYL 50 mcg/mL INJ 2mL 25 MCG IVP (14:25)
[2023-09-16] MEDS: ondansetron 2 mg/ML SDV 2 mL 4 MG IVP ×2 (15:47→21:08)
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
[2023-09-16 17:12] LABS: Glucose Point of Care 150 mg/dL (70-110)
[2023-09-16] MEDS: hydroxychloroquine 200 mg Tablet PO (17:36)
[2023-09-16] MEDS: iron polysaccharide complex 150 mg Capsule PO (17:37)
[2023-09-16] MEDS: docusate sodium 100 mg Capsule PO (17:37)
[2023-09-16] MEDS: calcium carb-vit d 600mg/400unit 1 Tablet 1 EACH PO (17:37)
[2023-09-16] MEDS: chlorhexidine gluconate 0.12% Btl 473 mL 30 ML MUCOUS MEM ×3 (17:39→20:26)
[2023-09-16] MEDS: mupirocin oint 22 gm 1 APPLIC NASAL (17:39)
[2023-09-16] MEDS: lactated ringers 1,000 ML 100 ML IV (17:41)
--- NOTE | 2023-09-16 18:04 | ANE.PACU2 ---
Inpatient post-anesthesia follow up: Airway intact: Yes Vital signs: Temperature 97.6 F Pulse Rate 90 Respiratory Rate 17 Blood Pressure 108/65 Pulse Oximetry 94 Oxygen Delivery Me thod Room Air Oxygen Flow Rate Fraction of Inspir ed Oxygen Hydration adequate: Yes Nausea and vomiting: No Pain level: 3 Mental status: Baseline
[2023-09-16] MEDS: HYDROmorphone 1 mg/mL INJ 1 mL 0.5 MG IVP (18:31)
[2023-09-16] MEDS: tranexamic acid 1,000 MG/100 ML PREMIX 600 MG IV (20:03)
[2023-09-16 20:34] LABS: Glucose Point of Care 110 mg/dL (70-110)
[2023-09-16] MEDS: ketorolac 30 mg/mL INJ 15 MG IVP (20:40)
[2023-09-16] MEDS: TRAMadol 50 mg Tablet PO (21:45)
[2023-09-16] MEDS: ipratropium-albuterol 3 mL Neb INHALATION (21:47)
[2023-09-17] VITALS (7 sets, daily range): BP systolic 96–135; BP diastolic 63–72; PULSE 78–83; RESP 15–19; TEMP 36.6–36.7; O2SAT 92–98
[2023-09-17] MEDS: lanolin oint 7 gm 1 APPLIC TOPICAL (00:11)
[2023-09-17] MEDS: oxyCODONE 5 mg IR Tab/Cap PO ×4 (00:16→14:03)
[2023-09-17] MEDS: ceFAZolin 2,000 MG in sodium chloride 0.9% (plus) 50 ML 100 MG IV ×2 (01:38→10:04)
[2023-09-17] MEDS: lactated ringers 1,000 ML 100 ML IV (04:19)
[2023-09-17 05:56] LABS: Basophils % 0.4 %; Eosinophils # 0.4 10^3/uL (0.0-0.8); Eosinophils % 5.4 %; Hematocrit 31.9 % (36-47); Lymphocytes # 1.4 10^3/uL (0.8-4.8); Lymphocytes % 20.2 %; Mean Corpuscular Hemoglobin 28.7 pg (27-33); Mean Corpuscular Volume 92.5 fl (85-98); Mean Platelet Volume 9.4 fL (7.4-10.4); Monocytes # 0.7 10^3/uL (0.2-0.9); Monocytes % 9.3 %; Neutrophils # 4.56 10^3/uL (1.8-7.7); Neutrophils % 64.6 %; Nucleated Red Blood Cells % 0 %; Platelet Count 190 10^3/cmm (157-399); Red Blood Count 3.45 10^6/uL (3.85-5.65); Red Cell Distribution Width 13.4 % (12.1-15.1); White Blood Count 7.07 10^3/uL (3.29-11.43)
[2023-09-17 06:17] LABS: Anion Gap 13.9 (5-19); Blood Urea Nitrogen 27 mg/dL (8-23); Calcium 8.2 mg/dL (8.5-10.5); Carbon Dioxide 21 mmol/L (22-29); Chloride 108 mmol/L (98-107); Glomerular Filtration Rate 32.9 mL/min (90-130); Glucose 94 mg/dL (65-115); Osmolality Calculated 291 mOsm/kg (285-295); Potassium 4.9 mmol/L (3.5-5.1); Sodium 138 mmol/L (136-145)
[2023-09-17 06:25] LABS: Glucose Point of Care 106 mg/dL (70-110)
[2023-09-17] MEDS: docusate sodium 100 mg Capsule PO (08:32)
[2023-09-17] MEDS: hydroxychloroquine 200 mg Tablet PO (08:32)
[2023-09-17] MEDS: apixaban 5 mg Tablet 2.5 MG PO (08:32)
[2023-09-17] MEDS: multivitamin therapeutic Tablet 1 TAB PO (08:32)
[2023-09-17] MEDS: calcium carb-vit d 600mg/400unit 1 Tablet 1 EACH PO (08:32)
[2023-09-17] MEDS: atorvastatin 40 mg Tablet 20 MG PO (08:33)
[2023-09-17] MEDS: iron polysaccharide complex 150 mg Capsule PO (08:33)
[2023-09-17] MEDS: pantoprazole DR 40 mg Tablet PO (08:33)
[2023-09-17] MEDS: montelukast sodium 10 mg Tablet PO (08:33)
[2023-09-17] MEDS: chlorhexidine gluconate 0.12% Btl 473 mL 30 ML MUCOUS MEM ×2 (08:34→12:08)
[2023-09-17] MEDS: mupirocin oint 22 gm 1 APPLIC NASAL (08:34)
[2023-09-17] MEDS: acetaminophen 1,000 MG/100 ML PIGGYBACK 400 MG IV (08:35)
[2023-09-17] MEDS: ondansetron 2 mg/ML SDV 2 mL 4 MG IVP (10:48)
[2023-09-17] MEDS: ketorolac 30 mg/mL INJ 15 MG IVP (10:48)
[2023-09-17 11:20] LABS: Glucose Point of Care 103 mg/dL (70-110)
--- NOTE | 2023-09-17 12:08 | P.PN_ITS ---
Documented by User: VENANCIO Herrera 09/17/23 16:51 Subjective 2 Subjective: pt is 1 day post op left total knee arthroplasty. no acute events overnight. pain is controlled. she has gotten up with PT today. Vitals/I&O/Wt Last Vital Signs Temp 98.0 F 09/17/23 11:22 Pulse 83 09/17/23 11:22 Resp 19 H 09/17/23 11:22 BP 135/72 09/17/23 11:22 Pulse Ox 92 09/17/23 11:22 O2 Del Method Room Air 09/17/23 11:22 09/16/23 09/17/23 09/17/23 22:59 06:59 14:59 Intake Total 450 / 2550 1350 / 3900 390 / 390 Output Total 300 / 520 600 / 1120 Balance 150 / 2030 750 / 2780 390 / 390 Weight last 48 hrs Weight 233 lb 9 oz Weight 223 lb Weight 223 lb Physical Exam 2 Const: COMMON NORMALS: no acute distress and alert Resp: COMMON NORMALS: normal respiratory effort and No retractions Cardio: COMMON NORMALS: Peripheral pulses 2+ throughout PERIPHERAL PULSES: Peripheral pulses 2+ throughout Extremity: NARRATIVE EXTREMITY EXAM: Left knee- dressing is dry and intact. pedal pulse 2+. pt can plantarflex and dorsiflex foot. Neuro: SENSORIUM/ORIENTATION: Yes alert Skin: GENERAL SKIN EXAM: dry skin Urinary Catheter Management: Mendiola: Cath Placed During This Visit: yes, but has since been removed by the nurse Reason for Continuing Indwelling Catheter: Decision to DC Catheter Urinary Catheter Date of Insertion: 09/16/23 Urinary Catheter Time of Insertion: 10:35 Date Urinary Catheter Removed: 09/17/23 Time Urinary Catheter Discontinued: 06:45 Data 09/17/23 05:31 09/17/23 05:31 A&P Assessment and plan (1) Status post total left knee replacement using cement: Plan Plan: -Imaging and Labs reviewed -Hospitalist on board for medical management. -DVT prophylaxis- elquis 2.5 mg BID -Weight-bear as tolerated on left leg -Pain control -PT Pt is doing well 1 day postop Left total knee replacement. Pt is cleared for discharge home today. [facility]. Attestations 2 Medical Necessity Statement*: on going care for left TKA Coding Level of Care Code Acute Code for Chg Fwd Diagnoses Status post total left knee replacement using cement Z96.652 Documented by User: Andrea Vizcarra DO 09/20/23 23:42 Physical Exam 2 Urinary Catheter Management: Mendiola: Cath Placed During This Visit: yes, but has since been removed by the nurse Data 09/17/23 05:31 09/17/23 05:31 A&P Assessment and plan (1) Status post total left knee replacement using cement: Coding Level of Care Code Acute Code for Chg Fwd Diagnoses Status post total left knee replacement using cement Z96.652
--- NOTE | 2023-09-17 12:10 | P.DS_ITS ---
Discharge Providers Date of Admission: 09/16/23 15:46 Date of Discharge: September 17, 2023 Attending Provider at Admission: Andrea Vizcarra DO Attending Provider at Discharge: Andrea Vizcarra DO Consults: Dr. Perea hospitalist Primary Care Provider: Dona Hirsch DO Diagnoses at Discharge Discharge Diagnosis (1) Status post total left knee replacement using cement: Status: Acute Reason for Visit Reason for Visit: 70645 M17.12 Brief History: Status post left total knee arthroplasty [facility] robotic assisted Hospital Course Hospital Course Patient presented to the preoperative holding area with plan for [ Left] total knee arthroplasty after patient has been worked up in the outpatient setting for failed conservative treatment of [Left ] knee degenerative joint disease. Once cleared by anesthesia for surgery patient subsequently was taken back to the operative suite underwent anesthesia per anesthesia department and then subsequently underwent a [ Left] total knee arthroplasty. Procedure was performed without any complications patient was taken to PACU in stable condition patient recovered well in PACU and then was admitted to the floor postoperatively internal medicine was consulted and on board for medical management and assistance with care. Patient received appropriate PT/OT, postoperative antibiotics, postoperative TXA, pain control, postoperative DVT prophylaxis. Elevation and ice. Patient encouraged for knee range of motion allowed weightbearing as tolerated to the operative lower extremity. Dressing was changed as needed, labs were monitored daily. Patient recovered well postoperatively and worked well and progressed well with therapy. [ No complications throughout patient's hospitalization]. It was determined on postoperative day [1 ] the patient was stable for discharge from an orthopedic standpoint and medicine. Patient was comfortable with discharge and plan was discharged home. Patient received appropriate discharge instructions as well as pain medication and DVT prophylaxis postoperatively. Given appropriate instructions for dressing management. Patient will follow-up with Dr. Vizcarra/orthopedics in the office in 2 weeks. All questions answered. Understand if there is any issues questions or concerns and contact the office. Physical Exam Const: COMMON NORMALS: no acute distress and alert Resp: COMMON NORMALS: normal respiratory effort and No retractions Cardio: COMMON NORMALS: Peripheral pulses 2+ throughout PERIPHERAL PULSES: Peripheral pulses 2+ throughout Extremity: NARRATIVE EXTREMITY EXAM: Left knee- dressing is dry and intact. pedal pulse 2+. pt can plantarflex and dorsiflex foot. Sensations intact to light touch distally dressings clean dry and intact, compartments are soft and compressible Neuro: SENSORIUM/ORIENTATION: Yes alert Skin: GENERAL SKIN EXAM: dry skin Urinary Catheter Management: Mendiola: Cath Placed During This Visit: yes, but has since been removed by the nurse Reason for Continuing Indwelling Catheter: Decision to DC Catheter Urinary Catheter Date of Insertion: 09/16/23 Urinary Catheter Time of Insertion: 10:35 Date Urinary Catheter Removed: 09/17/23 Time Urinary Catheter Discontinued: 06:45 Discharge Data Studies Completed and Pending Completed Studies During Hospitalization Category Date Time Status XR knee LT 1-2V 98005 Routine Exams 09/16/23 09:51 Completed Laboratory Results WBC 7.07 10^3/uL (3.29-11.43) 09/17/23 05:31 RBC 3.45 10^6/uL (3.85-5.65) L 09/17/23 05:31 Hgb 9.90 g/dL (11.27-16.99) L 09/17/23 05:31 Hct 31.9 % (36-47) L 09/17/23 05:31 MCV 92.5 fl (85-98) 09/17/23 05:31 MCH 28.7 pg (27-33) 09/17/23 05:31 MCHC 31.0 g/dL (30-55) 09/17/23 05:31 RDW 13.4 % (12.1-15.1) 09/17/23 05:31 Plt Count 190 10^3/cmm (157-399) 09/17/23 05:31 MPV 9.4 fL (7.4-10.4) 09/17/23 05:31 Neut % (Auto) 64.6 % 09/17/23 05:31 Lymph % (Auto) 20.2 % 09/17/23 05:31 [place] % (Auto) 9.3 % 09/17/23 05:31 Eos % (Auto) 5.4 % 09/17/23 05:31 Baso % (Auto) 0.4 % 09/17/23 05:31 Neut # (Auto) 4.56 10^3/uL (1.8-7.7) 09/17/23 05:31 Lymph # (Auto) 1.4 10^3/uL (0.8-4.8) 09/17/23 05:31 [place] # (Auto) 0.7 10^3/uL (0.2-0.9) 09/17/23 05:31 Eos # (Auto) 0.4 10^3/uL (0.0-0.8) 09/17/23 05:31 Baso # (Auto) 0.0 10^3/uL (0.0-0.1) 09/17/23 05:31 Nucleated RBC % (auto) 0 % 09/17/23 05:31 Nucleated RBCs # 0.0 /100WBC 09/17/23 05:31 Sodium 138 mmol/L (136-145) 09/17/23 05:31 Potassium 4.9 mmol/L (3.5-5.1) 09/17/23 05:31 Chloride 108 mmol/L (98-107) H 09/17/23 05:31 Carbon Dioxide 21 mmol/L (22-29) L 09/17/23 05:31 Anion Gap 13.9 (5-19) 09/17/23 05:31 BUN 27 mg/dL (8-23) H 09/17/23 05:31 Creatinine 1.6 mg/dL (0.5-0.9) H 09/17/23 05:31 GFR Calculation 32.9 mL/min (90-130) L 09/17/23 05:31 Glucose 94 mg/dL (65-115) 09/17/23 05:31 POC Glucose 103 mg/dL (70-110) 09/17/23 10:53 Calculated Osmolality 291 mOsm/kg (285-295) 09/17/23 05:31 Calcium 8.2 mg/dL (8.5-10.5) L 09/17/23 05:31 Blood Type O Positive 09/16/23 08:22 Rho(D) Type Rh positive 09/16/23 08:22 Antibody Screen Negative 09/16/23 08:22 Procedures Performed Left total knee arthroplasty [facility] robotic assisted Vitals Last Vital Signs Temp 98.0 F 09/17/23 11:22 Pulse 83 09/17/23 11:22 Resp 16 09/17/23 14:03 BP 135/72 09/17/23 11:22 Pulse Ox 96 09/17/23 14:03 O2 Del Method Room Air 09/17/23 11:22 Discharge Plan Discharge Patient Disposition: Home Health Service Condition: Stable Prescriptions: New Eliquis 2.5 mg tablet 2.5 mg PO BID 14 Days Qty: 28 0RF Percocet 5-325 mg tablet 1 tab PO Q6H PRN (Reason: pain) 7 Days Qty: 28 0RF Continued Glucosamine Chondroitin 550-30-1 mg capsule 1 cap PO BID pantoprazole 40 mg tablet,delayed release (DR/EC) 40 mg PO DAILY atorvastatin 20 mg tablet 20 mg PO DAILY montelukast 10 mg tablet 10 mg PO DAILY albuterol sulfate [ProAir HFA] 90 mcg/actuation HFA aerosol inhaler 2 puff inhalation Q6H PRN (Reason: Allergy Symptoms) budesonide-formoterol [Symbicort] 160-4.5 mcg/actuation HFA aerosol inhaler 2 puff inhalation BID lisinopril 10 mg tablet 5 mg PO DAILY metformin 500 mg tablet 500 mg PO DAILY diclofenac sodium [Voltaren Arthritis Pain] 1 % gel 4 g topical QID Qty: 100 3RF Rx Instructions: apply to single knee, ankle, foot; for foot includes sole/toes/top of foot (DME) KNEE BRACE See Rx Instructions .Route .MEDSUPPLY Qty: 1 0RF Rx Instructions: As directed prednisone 5 mg tablet 5 mg PO DAILY PRN (Reason: increased arthritis pain) Patient Comments: never taken as 0f 09/16/2023 hydroxychloroquine 200 mg tablet 200 mg PO BID 30 Days Qty: 60 4RF Discontinued Percocet 5-325 mg tablet 1 tab PO Q6H PRN (Reason: pain) 7 Days Qty: 28 0RF Discharge Orders: Discharge Order (Routine); Ordered 09/17/23 Ordered By: Andrea Vizcarra Referrals: [facility] ([facility]) [Outside] Dona Hirsch DO [Primary Care Provider] - 09/24/23 3:00 pm Andrea Vizcarra DO [Physician] - 10/01/23 9:45 am Discharge Diet: Regular Discharge Activity: Limit activity as instructed Patient Instructions: Oxycodone/Acetaminophen (By mouth), Ondansetron (By mouth), Apixaban (By mouth), Total Knee Replacement (GEN), Joint Replacement Stoplight, Opioid Safety Activity Restrictions/Additional Instructions: Orthopedic discharge instructions- Keep incisions clean dry and intact, leave sherron battery powered dressing on in place for 7 days after that may rinse incisions with warm soapy water pat dry and redress with a dry dressing. Patient may weight-bear as tolerate to the operative extremity Utilize crutches as needed Encourage knee range of motion Ice and elevate as needed for pain and swelling Take pain medication as prescribed Take antinausea medication as needed The prescribed Eliquis twice daily for the next 14 days for blood clot prevention May supplement for pain with ibuprofen [id number] as needed No baths or soaks Follow-up in the orthopedic office in 2 weeks Contact the office for any questions or concerns Discharge Attestations Time Spent in Discharge Care*: less than 30 min Quality Metrics Clinical Quality Measures [ No reported AMI, CVA or VTE this stay] Coding Level of Care Code Acute Code for Chg Fwd Diagnoses Status post total left knee replacement using cement Z96.652 Time Spent (min) 25
--- NOTE | 2023-09-17 16:58 | PM.PN ---
Subjective Subjective: Patient was seen this morning, she denies any fevers, chills, no cough, she did ambulate with physical therapy, Vitals/I&O/Wt Last Vital Signs Temp 98.0 F 09/17/23 11:22 Pulse 83 09/17/23 11:22 Resp 16 09/17/23 14:03 BP 135/72 09/17/23 11:22 Pulse Ox 96 09/17/23 14:03 O2 Del Method Room Air 09/17/23 11:22 09/17/23 09/17/23 09/17/23 06:59 14:59 22:59 Intake Total 1350 / 3900 1630 / 1630 Output Total 600 / 1120 Balance 750 / 2780 1630 / 1630 Weight last 48 hrs Weight 105.942 kg Weight 101.151 kg Weight 101.151 kg Physical Exam Const: COMMON NORMALS: no acute distress and patient oriented x3 Resp: COMMON NORMALS: normal respiratory effort, No retractions, No use of accessory muscles and clear to auscultation bilaterally AUSCULTATION: clear to auscultation bilaterally Cardio: COMMON NORMALS: regular rate, regular rhythm, S1 normal heart sound present and S2 normal heart sound present RATE: regular rate RHYTHM: regular rhythm HEART SOUNDS: S1 normal heart sound present and S2 normal heart sound present GI: COMMON NORMALS: Normal to inspection, nondistended, normoactive bowel sounds present and non-tender Extremity: COMMON NORMALS: no pedal edema Neuro: COMMON NORMALS: patient oriented x3 Psych: COMMON NORMALS: mental status grossly normal Urinary Catheter Management: Mendiola: Cath Placed During This Visit: yes, but has since been removed by the nurse Reason for Continuing Indwelling Catheter: Decision to DC Catheter Urinary Catheter Date of Insertion: 09/16/23 Urinary Catheter Time of Insertion: 10:35 Date Urinary Catheter Removed: 09/17/23 Time Urinary Catheter Discontinued: 06:45 Data 09/17/23 05:31 09/17/23 05:31 A&P Assessment and plan (1) Status post total left knee replacement using cement: POD 1 (2) Chronic kidney disease: Stage 3b at baseline, creatinine 1.4-1.9 since mid 2021 Qualifiers: Chronic kidney disease stage: stage 3 (moderate) Chronic kidney disease stage 3 subtype: stage 3b (GFR 30-44) Qualified Code(s): N18.32 - Chronic kidney disease, stage 3b (3) Diabetes: Type II, [id number] with CKD 3b, on metformin chronically Qualifiers: Diabetes mellitus type: type 2 Diabetes mellitus long-term insulin use: without long-term use Diabetes mellitus complication status: with kidney complications Diabetes mellitus complication detail: with chronic kidney disease Chronic kidney disease stage: stage 3 (moderate) Chronic kidney disease stage 3 subtype: stage 3b (GFR 30-44) Qualified Code(s): E11.22 - Type 2 diabetes mellitus with diabetic chronic kidney disease; N18.32 - Chronic kidney disease, stage 3b (4) Hypertension: Chronically on lisinopril, which also provides renal protection for kidneys Qualifiers: Hypertension type: primary hypertension Qualified Code(s): I10 - Essential (primary) hypertension (5) Hyperlipidemia: Type unknown, on chronic statin therapy (6) Asthma: Chronically has albuterol as needed plus Symbicort inhaler and singulair, not acutely exacerbated (7) Rheumatoid factor positive: Has either seropositive RA or inflammatory OA, followed by rheumatology. On Plaquenil chronically along with glucosamine, diclofenac gel. Has a prescription for as needed prednisone but has not taken it. (8) Adult BMI 40.0-44.9 kg/sq m: Plan Will discharge today, continue to be ambulatory, discharging on Eliquis for DVT prophylaxis, monitor for blood in the stools, monitor for falls if so go to the emergency room, monitor for calf pain or calf swelling if so go to emergency room, see primary care provider in the next few days, if any fevers or chills go to the emergency room, Attestations Medical Necessity Statement*: Patient will be discharged today Diagnoses Status post total left knee replacement using cement Z96.652 Stage 3b chronic kidney disease N18.32 Chronic kidney disease stage: stage 3 (moderate) Chronic kidney disease stage 3 subtype: stage 3b (GFR 30-44) Type 2 diabetes mellitus with stage 3b chronic kidney disease, without long-term current use of insulin E11.22; N18.32 Diabetes mellitus type: type 2 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
== END 2023-09-17 14:30 | disposition home health service (06) ==
LOC: MEDSURG 15:48
PROVIDERS: Admitting Provider Student in an Organized Health Care Education/Training Program; PCP Family Medicine; Visit Provider Student in an Organized Health Care Education/Training Program
PROC: 8E0Y0CZ Robotic Assisted Procedure of Lower Extremity, Open Approach (ICD-10-PCS; CPT 27447; principal; 2023-09-16 09:40)
DX: M17.12 Unilateral primary osteoarthritis, left knee (principal); E78.5 Hyperlipidemia, unspecified; E66.01 Morbid (severe) obesity due to excess calories; Z79.52 Long term (current) use of systemic steroids; E11.22 Type 2 diabetes mellitus with diabetic chronic kidney disease; I12.9 Hypertensive chronic kidney disease with stage 1 through stage 4 chronic kidney disease, or unspecified chronic kidney disease; N18.9 Chronic kidney disease, unspecified
CPT/HCPCS: 20985; 27447; 36415; 36416; 51702; 73560; 80048; 82962; 85025; 86850; 86900; 94640; 97110; 97116; 97161; 97165; 97530; C1776; G0378; J0131; J0171; J0690; J1170; J1885; J2250; J2405; J2704; J2795; J3010; J3370; J3490; J7030; J7120; P9045

== ENCOUNTER → 2023-10-01 10:18 | Outpatient (BNVA) | payer MEDICARE, SELFPAY | PROVIDERS: PCP Family Medicine; Visit Provider Student in an Organized Health Care Education/Training Program | DX: Z96.652 Presence of left artificial knee joint (principal) | CPT/HCPCS: 73560; 73565; 99024 ==

== ENCOUNTER 2023-10-16 12:30 | Outpatient (RCR) | payer MEDICARE, SELFPAY | END 2023-11-13 23:59 | disposition home or self-care (01) | LOC: SPT 12:30 | PROVIDERS: Visit Provider Student in an Organized Health Care Education/Training Program | DX: Z47.1 Aftercare following joint replacement surgery (principal); Z96.652 Presence of left artificial knee joint | CPT/HCPCS: 97110; 97161 ==

== ENCOUNTER → 2023-11-12 13:11 | Outpatient (BNVA) | payer MEDICARE, SELFPAY | PROVIDERS: PCP Family Medicine; Visit Provider Student in an Organized Health Care Education/Training Program | DX: Z96.653 Presence of artificial knee joint, bilateral (principal) | CPT/HCPCS: 73560; 73565; 99024 ==

== ENCOUNTER 2023-11-14 06:00 | Outpatient (RCR) | payer MEDICARE, SELFPAY | END 2023-11-19 23:59 | disposition home or self-care (01) | LOC: SPT 06:00 | PROVIDERS: PCP Family Medicine; Visit Provider Student in an Organized Health Care Education/Training Program | DX: Z47.1 Aftercare following joint replacement surgery (principal); Z96.652 Presence of left artificial knee joint | CPT/HCPCS: 97110 ==

== ENCOUNTER → 2023-12-11 08:15 | Outpatient (BNVA) | payer MEDICARE, SELFPAY | PROVIDERS: PCP Family Medicine; Visit Provider Podiatrist Foot & Ankle Surgery | DX: R76.8 Other specified abnormal immunological findings in serum (principal); N28.9 Disorder of kidney and ureter, unspecified; L60.3 Nail dystrophy; I73.9 Peripheral vascular disease, unspecified | CPT/HCPCS: 11721 ==

== ENCOUNTER → 2024-02-11 13:04 | Outpatient (BNVA) | payer MEDICARE, SELFPAY | PROVIDERS: PCP Family Medicine; Visit Provider Student in an Organized Health Care Education/Training Program | DX: Z96.653 Presence of artificial knee joint, bilateral (principal) | CPT/HCPCS: 73560; 73565; 99213 ==

== ENCOUNTER → 2024-03-10 08:04 | Outpatient (BNVA) | payer MEDICARE, SELFPAY | PROVIDERS: PCP Family Medicine; Visit Provider Podiatrist Foot & Ankle Surgery | DX: R76.8 Other specified abnormal immunological findings in serum (principal); N28.9 Disorder of kidney and ureter, unspecified; L60.3 Nail dystrophy; I73.9 Peripheral vascular disease, unspecified; L84 Corns and callosities; M20.41 Other hammer toe(s) (acquired), right foot | CPT/HCPCS: 11055; 11721 ==

== ENCOUNTER 2024-05-27 11:27 | Outpatient (CLI) | payer MEDICARE, SELFPAY ==
--- NOTE | 2024-05-27 11:35 | MM_ITS ---
WS: [id number] BILATERAL SCREENING DIGITAL TOMOSYNTHESIS MAMMOGRAM WITH CAD HISTORY: SCREENING COMPARISON: 05/22/2023, 10/03/2021 Bilateral CC and MLO views with tomosynthesis and synthetic mammography submitted. Computer aided det ection analyzed. Breast composition: There are scattered areas of fibroglandular density. No suspicious masses, microc alcifications or architectural distortion. Benign calcification posterior LEFT breast. MM/[place] [id number] IMPRESSION: BI-RADS: 2-Benign FOLLOW UP: 1 Year Follow-up
== END 2024-05-27 11:28 | disposition home or self-care (01) ==
LOC: RAD 11:28
PROVIDERS: PCP Family Medicine; Visit Provider Family Medicine
DX: Z12.31 Encounter for screening mammogram for malignant neoplasm of breast (principal); R92.323 Mammographic fibroglandular density, bilateral breasts
CPT/HCPCS: 77063; 77067

== ENCOUNTER → 2024-06-09 08:07 | Outpatient (BNVA) | payer MEDICARE, SELFPAY | PROVIDERS: PCP Family Medicine; Visit Provider Podiatrist Foot & Ankle Surgery | DX: R76.8 Other specified abnormal immunological findings in serum (principal); L60.3 Nail dystrophy; I73.9 Peripheral vascular disease, unspecified; L84 Corns and callosities | CPT/HCPCS: 11056; 11721 ==

== ENCOUNTER → 2024-08-24 09:46 | Outpatient (BNVA) | payer MEDICARE, SELFPAY | PROVIDERS: PCP Family Medicine; Visit Provider Podiatrist Foot & Ankle Surgery | DX: E11.8 Type 2 diabetes mellitus with unspecified complications (principal); R76.8 Other specified abnormal immunological findings in serum; L60.3 Nail dystrophy; I73.9 Peripheral vascular disease, unspecified; L84 Corns and callosities | CPT/HCPCS: 11056; 11721 ==

== ENCOUNTER 2024-09-15 12:28 | Outpatient (CLI) | payer MEDICARE, SELFPAY ==
[2024-09-15 13:01] VITALS: PULSE 98; RESP 18; O2SAT 96
[2024-09-15] MEDS: albuterol 2.5 mg/3 mL Neb INHALATION (13:01)
[2024-09-15 13:06] VITALS: PULSE 96
== END 2024-09-15 12:29 | disposition home or self-care (01) ==
PROVIDERS: PCP Family Medicine; Visit Provider Family Medicine
DX: J45.909 Unspecified asthma, uncomplicated (principal); R94.2 Abnormal results of pulmonary function studies
CPT/HCPCS: 94060; 94729; J7613

== ENCOUNTER → 2024-09-29 10:08 | Outpatient (BNVA) | payer MEDICARE, SELFPAY | PROVIDERS: PCP Family Medicine; Visit Provider Student in an Organized Health Care Education/Training Program | DX: Z96.653 Presence of artificial knee joint, bilateral (principal) | CPT/HCPCS: 73560; 73565; 99213 ==

== ENCOUNTER → 2024-10-26 09:52 | Outpatient (BNVA) | payer MEDICARE, SELFPAY | PROVIDERS: PCP Family Medicine; Visit Provider Podiatrist Foot & Ankle Surgery | DX: R76.8 Other specified abnormal immunological findings in serum (principal); L60.3 Nail dystrophy; I73.9 Peripheral vascular disease, unspecified; L84 Corns and callosities | CPT/HCPCS: 11056; 11721 ==

== ENCOUNTER → 2024-12-28 09:15 | Outpatient (BNVA) | payer MEDICARE, SELFPAY | PROVIDERS: PCP Family Medicine; Visit Provider Podiatrist Foot & Ankle Surgery | DX: I73.9 Peripheral vascular disease, unspecified (principal); L60.3 Nail dystrophy; L84 Corns and callosities; R76.8 Other specified abnormal immunological findings in serum | CPT/HCPCS: 11055; 11721 ==

== ENCOUNTER 2025-01-22 14:46 | Outpatient (CLI) | payer MEDICARE, SELFPAY ==
--- NOTE | 2025-01-22 14:49 | US_ITS ---
WS: [id number] ULTRASOUND RENAL TECHNIQUE: Ultrasound examination of both kidneys. CLINICAL INFORMATION: CHRONIC KIDNEY DZ STAGE 4 COMPARISON: None. FINDINGS: RIGHT: Lobulated RIGHT kidney with parenchymal scarring Echogenicity: Normal. Cortical thickness: 1.2 cm; Normal. Hydronephrosis: None. Perinephric fluid: None. Right kidney measures: 9.4 cm x 4.9 cm x 4.8 cm. LEFT: Small atrophic LEFT kidney Echogenicity: Normal Hydronephrosis: None. Perinephric fluid: None. Left kidney measures: 5.8 cm x 2.8 cm x 3.5 cm. Normal visualized aorta. Normal bladder US/US renal BI* [id number] IMPRESSION: Technically difficult study due to bowel gas and body habitus. 1. No hydronephrosis in either kidney. 2. Normal bladder. 3. Small atrophic LEFT kidney. 4. Parenchymal scarring and lobulation RIGHT kidney.
== END 2025-01-22 14:47 | disposition home or self-care (01) ==
LOC: RAD 14:47
PROVIDERS: PCP Family Medicine; Visit Provider Internal Medicine Nephrology
DX: N18.4 Chronic kidney disease, stage 4 (severe) (principal); N26.1 Atrophy of kidney (terminal); R93.421 Abnormal radiologic findings on diagnostic imaging of right kidney
CPT/HCPCS: 76770

== ENCOUNTER → 2025-03-22 09:44 | Outpatient (BNVA) | payer MEDICARE, SELFPAY | PROVIDERS: PCP Family Medicine; Visit Provider Podiatrist Foot & Ankle Surgery | DX: E11.8 Type 2 diabetes mellitus with unspecified complications (principal); L60.3 Nail dystrophy; L84 Corns and callosities; R76.8 Other specified abnormal immunological findings in serum; I73.9 Peripheral vascular disease, unspecified | CPT/HCPCS: 11055; 11721 ==

== ENCOUNTER 2025-05-31 08:50 | Outpatient (CLI) | payer MEDICARE, SELFPAY ==
--- NOTE | 2025-05-31 08:55 | MM_ITS ---
WS: [id number] Bilateral screening 3D tomosynthesis digital mammogram, 05/31/2025 9:14 AM Clinical Data: SCREENING Comparison: 05/27/2024, 05/22/2023, 10/04/2021, 09/14/2020, 02/26/2020, 08/31/2019, 08/14/2019, 07/26/2016, 04/30/2014, 10/28/2003, 10/21/2003. Findings: No spiculated masses or clustered calcifications are seen. There are no secondary signs of carcinoma. MM/MM scr BI tomosynthesis [id number] Impression: Negative bilateral mammogram unchanged. Recommend annual screening mammograms. BIRADS: 1 - Negative. FOLLOW UP: 1 Year Follow-up DENSITY: There are scattered areas of fibroglandular density. The CAD billet checker was used
== END 2025-05-31 08:51 | disposition home or self-care (01) ==
LOC: RAD 08:51
PROVIDERS: PCP Family Medicine; Visit Provider Internal Medicine Nephrology
DX: Z12.31 Encounter for screening mammogram for malignant neoplasm of breast (principal)
CPT/HCPCS: 77063; 77067

== ENCOUNTER → 2025-06-21 14:22 | Outpatient (BNVA) | payer MEDICARE, SELFPAY | PROVIDERS: PCP Family Medicine; Visit Provider Podiatrist Foot & Ankle Surgery | DX: E11.8 Type 2 diabetes mellitus with unspecified complications (principal); L60.3 Nail dystrophy; L84 Corns and callosities; R76.8 Other specified abnormal immunological findings in serum; I73.9 Peripheral vascular disease, unspecified | CPT/HCPCS: 11055; 11721 ==

== ENCOUNTER → 2025-09-21 14:10 | Outpatient (BNVA) | payer MEDICARE, SELFPAY | PROVIDERS: PCP Family Medicine; Visit Provider Podiatrist Foot & Ankle Surgery | DX: E11.8 Type 2 diabetes mellitus with unspecified complications (principal); L60.3 Nail dystrophy; L84 Corns and callosities; R76.89 Other specified abnormal immunological findings in serum; I73.9 Peripheral vascular disease, unspecified | CPT/HCPCS: 11055; 11721 ==